=== PATIENT | male | born 1930 | race Asian ===

== ENCOUNTER 2017-07-01 06:51 | Inpatient (IN) | payer OTHER, MEDICAID ==
[~2017-07-01] VITALS: Ht 165.1 cm; Wt 55.1 kg
[2017-07-01 06:52] VITALS: BP 98/50
[2017-07-01] MEDS ORDERED: LEVOTHYROXINE75 MCG ORAL (07:04)
[2017-07-01] MEDS ORDERED: ALFUZOSIN HCL10 MG PO (07:04)
[2017-07-01] MEDS ORDERED: BENZONATATE100 MG ORAL (07:04)
[2017-07-01 07:06] LABS: HEMATOCRIT 25.7 % (42.0-52.0); HEMOGLOBIN 8.2 G/DL (14.2-18.0); MEAN CORPUSCULAR VOLUME 91 FL (80-99); PLATELET COUNT 384 K/UL (150-450); RED BLOOD COUNT 2.81 M/UL (4.70-6.10); RED CELL DISTRIBUTION WIDTH 11.9 % (11.6-14.8); WHITE BLOOD COUNT 8.3 K/UL (4.8-10.8)
--- NOTE | 2017-07-01 07:09 | Emergency Room Report ---
History of Present Illness General Chief Complaint: Dyspnea/Respdistress Source: Family Member Present Illness HPI Patient presents from home with complaints of shortness of breath Patient's son provides most of the history reports the patient has been coughing with sputum production appears to be weak symptoms ongoing for the past several days he also reports the patient had recent hospitalization at [facility] Denies any vomiting or diarrhea Patient appears extremely weak is not able to provide full sentences he repeated that his mouth was dry History of present illness remains significantly limited Allergies: Coded Allergies: No Known Allergies (Unverified , 07/01/17) Patient History Limited by: medical condition Past Medical History: see triage record Pertinent Family History: none Reviewed Nursing Documentation: PMH: Agreed, PSxH: Agreed Nursing Documentation-PMH Past Medical History: No History, Except For Review of Systems All Other Systems: limited - Other than the ones mentioned in the history of present illness all others are reviewed however they do stay limited due to the patient's mental status Physical Exam Vital Signs Date Time Temp Pulse Resp B/P (MAP) Pulse Ox O2 Delivery O2 Flow Rate FiO2 07/01/17 06:42 97.0 83 36 98/50 97 Nasal Cannula 3.0 Sp02 EP Interpretation: reviewed, normal General Appearance: cachetic Head: normocephalic, atraumatic Eyes: bilateral eye PERRL, bilateral eye EOMI ENT: dry mucus membranes Neck: full range of motion, supple Respiratory: no respiratory distress, no retraction, crackles - Both lower lobes Cardiovascular #1: no edema, irregularly irregular Gastrointestinal: non tender, soft Musculoskeletal: other - Patient does not follow all commands appears extremely weak, there is no obvious focal deficit Neurologic: responsive Skin: other - Poor skin turgor Lymphatic: no adenopathy Medical Decision Making Diagnostic Impression: Primary Impression: Dyspnea Additional Impressions: Anemia MDS (myelodysplastic syndrome) Interstitial lung disease Hypoxia ER Course Patient is a fairly complex patient with multiple differential to consideration including but not limited to cardiac cardiopulmonary and vascular emergencies Patient's blood work reveals anemia X-ray reveals what appears to be likely interstitial disease there are increased markings right upper lobe Dr. Vick was able to review imaging from recent hospitalization which does show some similar findings Patient received IV fluids blood pressure has significantly improved at this time requires further inpatient care Please note that the initial EKG had read atrial fibrillation, there appears to be premature atrial contraction and visible P waves, therefore this is likely abberancy Labs Test 07/01/17 06:50 07/01/17 07:23 White Blood Count 8.3 K/UL (4.8-10.8) Red Blood Count 2.81 M/UL (4.70-6.10) Hemoglobin 8.2 G/DL (14.2-18.0) Hematocrit 25.7 % (42.0-52.0) Mean Corpuscular Volume 91 FL (80-99) Mean Corpuscular Hemoglobin 29.0 PG (27.0-31.0) Mean Corpuscular Hemoglobin Concent 31.8 G/DL (32.0-36.0) Red Cell Distribution Width 11.9 % (11.6-14.8) Platelet Count 384 K/UL (150-450) Mean Platelet Volume 5.1 FL (6.5-10.1) Neutrophils (%) (Auto) % (45.0-75.0) Lymphocytes (%) (Auto) % (20.0-45.0) Monocytes (%) (Auto) % (1.0-10.0) Eosinophils (%) (Auto) % (0.0-3.0) Basophils (%) (Auto) % (0.0-2.0) Differential Total Cells Counted 100 Neutrophils % (Manual) 85 % (45-75) Lymphocytes % (Manual) 7 % (20-45) Monocytes % (Manual) 8 % (1-10) Eosinophils % (Manual) 0 % (0-3) Basophils % (Manual) 0 % (0-2) Band Neutrophils 0 % (0-8) Platelet Estimate Adequate Platelet Morphology Normal Hypochromasia 1+ Prothrombin Time 12.1 SEC (9.30-11.50) Prothromb Time International Ratio 1.2 (0.9-1.1) Activated Partial Thromboplast Time 28 SEC (23-33) Sodium Level 132 MMOL/L (136-145) Potassium Level 3.1 MMOL/L (3.5-5.1) Chloride Level 93 MMOL/L (98-107) Carbon Dioxide Level 33 MMOL/L (21-32) Anion Gap 6 mmol/L (5-15) Blood Urea Nitrogen 9 mg/dL (7-18) Creatinine 0.8 MG/DL (0.55-1.30) Estimat Glomerular Filtration Rate mL/min (>60) Glucose Level 100 MG/DL (74-106) Lactic Acid Level 1.60 mmol/L (0.66-2.22) Calcium Level 8.4 MG/DL (8.5-10.1) Total Bilirubin 0.4 MG/DL (0.2-1.0) Aspartate Amino Transf (AST/SGOT) 55 U/L (15-37) Alanine Aminotransferase (ALT/SGPT) 84 U/L (12-78) Alkaline Phosphatase 94 U/L (46-116) Total Creatine Kinase 63 U/L (26-308) Creatine Kinase MB 0.7 NG/ML (0.0-3.6) Creatine Kinase MB Relative Index 1.1 Troponin I 0.005 ng/mL (0.000-0.056) Pro-B-Type Natriuretic Peptide 769 pg/mL (0-125) Total Protein 6.5 G/DL (6.4-8.2) Albumin 1.9 G/DL (3.4-5.0) Globulin 4.6 g/dL Albumin/Globulin Ratio 0.4 (1.0-2.7) Lipase 78 U/L (73-393) Urine Color Pale yellow Urine Appearance Clear Urine pH 7 (4.5-8.0) Urine Specific [place] 1.010 (1.005-1.035) Urine Protein Negative (NEGATIVE) Urine Glucose (UA) Negative (NEGATIVE) Urine Ketones Negative (NEGATIVE) Urine Occult Blood 5+ (NEGATIVE) Urine Nitrite Negative (NEGATIVE) Urine Bilirubin Negative (NEGATIVE) Urine Urobilinogen 1 MG/DL (0.0-1.0) Urine Leukocyte Esterase Negative (NEGATIVE) Urine RBC 40-60 /HPF (0 - 0) Urine WBC 0-2 /HPF (0 - 0) Urine Squamous Epithelial Cells Occasional /LPF Urine Bacteria Occasional /HPF (NONE) Rhythm Strip Diag. Results EP Interpretation: yes Rate: 77 Rhythm: NSR, no PVC's, no ectopy Chest X-Ray Diagnostic Results Chest X-Ray Diagnostic Results : Chest X-Ray Ordered: Yes # of Views/Limited/Complete: 1 View Indication: Shortness of Breath EP Interpretation: Yes Interpretation: no pneumothorax, other - Interstitial disease appearance, increase right upper lung markings, bilateral effusions Impression: Other - Interstitial disease significant with bilateral effusions Electronically Signed by: Lora Montero DO Last Vital Signs Date Time Temp Pulse Resp B/P (MAP) Pulse Ox O2 Delivery O2 Flow Rate FiO2 07/01/17 06:52 77 26 Nasal Cannula 3.0 07/01/17 06:52 97.0 98/50 100 Status: improved Disposition: ADMITTED INPATIENT Condition: Serious LORA MONTERO D.O. Jul 01, 2017 07:09
[2017-07-01 07:16] LABS: INR 1.2 (0.9-1.1)
[2017-07-01 07:21] LABS: ALANINE AMINOTRANSFERASE 84 U/L (12-78); ALBUMIN 1.9 G/DL (3.4-5.0); ALBUMIN/GLOBULIN RATIO 0.4 (1.0-2.7); ALKALINE PHOSPHATASE 94 U/L (46-116); ANION GAP 6 mmol/L (5-15); ASPARTATE AMINO TRANSFERASE 55 U/L (15-37); BILIRUBIN,TOTAL 0.4 MG/DL (0.2-1.0); BLOOD UREA NITROGEN 9 mg/dL (7-18); CALCIUM 8.4 MG/DL (8.5-10.1); CARBON DIOXIDE 33 MMOL/L (21-32); CHLORIDE 93 MMOL/L (98-107); CREATININE 0.8 MG/DL (0.55-1.30); POTASSIUM 3.1 MMOL/L (3.5-5.1); SODIUM 132 MMOL/L (136-145)
[2017-07-01 07:31] LABS: CKMB 0.7 NG/ML (0.0-3.6); CREATINE KINASE 63 U/L (26-308)
[2017-07-01 07:59] LABS: APPEARANCE,URINE CLEAR; BILIRUBIN, URINE NEGATIVE (NEGATIVE); COLOR,URINE PALE YELLOW; GLUCOSE, URINE (UA) NEGATIVE (NEGATIVE); KETONES,URINE NEGATIVE (NEGATIVE); LEUKOCYTE ESTERASE ,URINE NEGATIVE (NEGATIVE); NITRITE,URINE NEGATIVE (NEGATIVE); PH,URINE 7 (4.5-8.0); PROTEIN,URINE NEGATIVE (NEGATIVE); UROBILINOGEN,URINE 1 MG/DL (0.0-1.0)
[2017-07-01 09:09] VITALS: BP 99/59
[2017-07-01] MEDS ORDERED: Albuterol ud Inhalation HHN ONE (09:15)
[2017-07-01 10:33] VITALS: BP 113/73
--- NOTE | 2017-07-01 11:16 | Diagnostic Imaging Report ---
Indication: Dyspnea Comparison: 03/25/2006 A single view chest radiograph was obtained. Findings: Extensive scarring in the upper lobes demonstrated with pleural thickening and suggestion of honeycombing. Abnormal interstitial opacities likely fibrosis demonstrated bilaterally. Superimposed interstitial edema is certainly possible. Please correlate clinically. Heart appears prominent size. Aorta is moderately calcified. Bones are osteopenic. Impression: Chronic lung disease as described above. Superimpose interstitial edema or pneumonitis may be present. Please correlate clinically. Followup recommended.
[2017-07-01] MEDS: Albuterol/Ipratropium 3ml neb HHN SCH ×4 (11:30→23:00)
--- NOTE | 2017-07-01 13:02 | History & Physical ---
History and Physical History & Physicial dict bronchiectasis w MAC pneumonia severe protein madisyn malnutrition anemia hypotension due to dehydration, resolved ID consult [facility] SHEANILSA Jul 01, 2017 13:02
--- NOTE | 2017-07-01 13:02 | History & Physical ---
History and Physical History & Physicial dict bronchiectasis w MAC pneumonia severe protein madisyn malnutrition anemia hypotension due to dehydration, resolved ID consult [facility] SHEANILSA Jul 01, 2017 13:02
--- NOTE | 2017-07-01 13:02 | History & Physical ---
History and Physical History & Physicial dict bronchiectasis w MAC pneumonia severe protein madisyn malnutrition anemia hypotension due to dehydration, resolved ID consult [facility] SHEANILSA Jul 01, 2017 13:02
[2017-07-01] MEDS: Benzonatate 100mg Perles ORAL SCH ×2 (13:37→17:51)
[2017-07-01] MEDS ORDERED: KCl 10% 40mEq/30ml liquid ORAL ONE (14:00)
--- NOTE | 2017-07-01 15:05 | Infectious Diseases Prog Note ---
Assessment/Plan Assessment/Plan Full consult dictated: A) 1) possible mac pna, less likely invasive aspergillus based on CT 2) no obvious focal consolidation to suggest cap 3) pmh noted 4) patient refused bronchoscopy P 1) azithromycin, rifampin, ethambutol 2) baseline ekg, auditory and visual acuity evaluation (ophthalmology and ENT evaluation) 3) will need at least one year treatment with f/u negative sputum culture 4) d/w Dr. Vick 5) thank you Subjective Allergies: Coded Allergies: No Known Allergies (Unverified , 07/01/17) Objective Vital Signs Last 24 Hour Vital Signs Date Time Temp Pulse Resp B/P (MAP) Pulse Ox O2 Delivery O2 Flow Rate FiO2 07/01/17 12:00 89 07/01/17 10:54 86 07/01/17 10:35 78 20 100 Nasal Cannula 2.0 28 07/01/17 10:33 96.4 73 20 113/73 90 Room Air 07/01/17 10:30 81 18 91 Nasal Cannula 2.0 91 07/01/17 10:27 80 18 Nasal Cannula 2.0 28 07/01/17 09:45 97.0 78 22 99/59 100 Nasal Cannula 3.0 07/01/17 09:09 97.0 78 22 99/59 100 Nasal Cannula 3.0 07/01/17 06:52 77 26 Nasal Cannula 3.0 07/01/17 06:52 97.0 76 30 98/50 100 Nasal Cannula 3.0 07/01/17 06:42 97.0 83 36 98/50 97 Nasal Cannula 3.0 Height (Feet): 5 Height (Inches): 5.00 Weight (Pounds): 95 Laboratory Tests Test 07/01/17 06:50 07/01/17 07:23 White Blood Count 8.3 K/UL (4.8-10.8) Red Blood Count 2.81 M/UL (4.70-6.10) L Hemoglobin 8.2 G/DL (14.2-18.0) L Hematocrit 25.7 % (42.0-52.0) L Mean Corpuscular Volume 91 FL (80-99) Mean Corpuscular Hemoglobin 29.0 PG (27.0-31.0) Mean Corpuscular Hemoglobin Concent 31.8 G/DL (32.0-36.0) L Red Cell Distribution Width 11.9 % (11.6-14.8) Platelet Count 384 K/UL (150-450) Mean Platelet Volume 5.1 FL (6.5-10.1) L Neutrophils (%) (Auto) % (45.0-75.0) Lymphocytes (%) (Auto) % (20.0-45.0) Monocytes (%) (Auto) % (1.0-10.0) Eosinophils (%) (Auto) % (0.0-3.0) Basophils (%) (Auto) % (0.0-2.0) Differential Total Cells Counted 100 Neutrophils % (Manual) 85 % (45-75) H Lymphocytes % (Manual) 7 % (20-45) L Monocytes % (Manual) 8 % (1-10) Eosinophils % (Manual) 0 % (0-3) Basophils % (Manual) 0 % (0-2) Band Neutrophils 0 % (0-8) Platelet Estimate Adequate Platelet Morphology Normal Hypochromasia 1+ Prothrombin Time 12.1 SEC (9.30-11.50) H Prothromb Time International Ratio 1.2 (0.9-1.1) H Activated Partial Thromboplast Time 28 SEC (23-33) Sodium Level 132 MMOL/L (136-145) L Potassium Level 3.1 MMOL/L (3.5-5.1) L Chloride Level 93 MMOL/L (98-107) L Carbon Dioxide Level 33 MMOL/L (21-32) H Anion Gap 6 mmol/L (5-15) Blood Urea Nitrogen 9 mg/dL (7-18) Creatinine 0.8 MG/DL (0.55-1.30) Estimat Glomerular Filtration Rate mL/min (>60) Glucose Level 100 MG/DL (74-106) Lactic Acid Level 1.60 mmol/L (0.66-2.22) Calcium Level 8.4 MG/DL (8.5-10.1) L Total Bilirubin 0.4 MG/DL (0.2-1.0) Aspartate Amino Transf (AST/SGOT) 55 U/L (15-37) H Alanine Aminotransferase (ALT/SGPT) 84 U/L (12-78) H Alkaline Phosphatase 94 U/L (46-116) Total Creatine Kinase 63 U/L (26-308) Creatine Kinase MB 0.7 NG/ML (0.0-3.6) Creatine Kinase MB Relative Index 1.1 Troponin I 0.005 ng/mL (0.000-0.056) Pro-B-Type Natriuretic Peptide 769 pg/mL (0-125) H Total Protein 6.5 G/DL (6.4-8.2) Albumin 1.9 G/DL (3.4-5.0) L Globulin 4.6 g/dL Albumin/Globulin Ratio 0.4 (1.0-2.7) L Lipase 78 U/L (73-393) Urine Color Pale yellow Urine Appearance Clear Urine pH 7 (4.5-8.0) Urine Specific [place] 1.010 (1.005-1.035) Urine Protein Negative (NEGATIVE) Urine Glucose (UA) Negative (NEGATIVE) Urine Ketones Negative (NEGATIVE) Urine Occult Blood 5+ (NEGATIVE) H Urine Nitrite Negative (NEGATIVE) Urine Bilirubin Negative (NEGATIVE) Urine Urobilinogen 1 MG/DL (0.0-1.0) H Urine Leukocyte Esterase Negative (NEGATIVE) Urine RBC 40-60 /HPF (0 - 0) H Urine WBC 0-2 /HPF (0 - 0) Urine Squamous Epithelial Cells Occasional /LPF Urine Bacteria Occasional /HPF (NONE) Current Medications Medications (Trade) Dose Ordered Sig/Tanya Route PRN Reason Start Time Stop Time Status Last Admin Dose Admin Albuterol/ Ipratropium (Albuterol/ Ipratropium) 3 ml Q4HRT HHN 07/01/17 11:30 07/06/17 11:29 Alfuzosin HCl (Uroxatrol) 10 mg DAILY ORAL 07/02/17 09:00 08/01/17 08:59 Benzonatate (Tessalon Perles) 100 mg THREE TIMES A DAY ORAL 07/01/17 13:00 07/31/17 12:59 07/01/17 13:37 Cetylpyridinium Chloride (Cepacol) 1 lozenge Q2H PRN CHI throat pain 07/01/17 12:00 07/31/17 11:59 07/01/17 12:38 Levothyroxine Sodium (Synthroid) 75 mcg DAILY@0630 ORAL 07/02/17 06:30 08/01/17 06:29 Sodium Chloride 1,000 ml @ 100 mls/hr Q10H IV 07/01/17 10:00 07/31/17 09:59 07/01/17 12:38 BRITTANI LAWRENCE Jul 01, 2017 15:05
[2017-07-01] MEDS ORDERED: Azithromycin 250mg tab ORAL ONE (15:15)
[2017-07-01 15:57] VITALS: BP 86/49
[2017-07-01 20:00] VITALS: BP 97/50
[2017-07-01] MEDS ORDERED: Zolpidem 5mg tab ORAL PRN (20:15)
--- NOTE | 2017-07-01 20:16 | Cardiology Report ---
APPROVED REPORT EKG Measurement Heart [id number] Sinus rhythm aith APCs. Left posterior fascicular block Cannot rule out Anterior infarct, age undetermined Abnormal ECG
--- NOTE | 2017-07-01 20:16 | Cardiology Report ---
APPROVED REPORT EKG Measurement Heart [id number] Sinus rhythm aith APCs. Left posterior fascicular block Cannot rule out Anterior infarct, age undetermined Abnormal ECG
--- NOTE | 2017-07-01 20:16 | Cardiology Report ---
APPROVED REPORT EKG Measurement Heart [id number] Sinus rhythm aith APCs. Left posterior fascicular block Cannot rule out Anterior infarct, age undetermined Abnormal ECG
--- NOTE | 2017-07-01 21:00 | History and Physical Report ---
DATE OF ADMISSION: 07/01/2017 IDENTIFICATION DATA AND CHIEF COMPLAINT: An 86-year-old male admitted through the emergency department from home because of shortness of breath and weakness. HISTORY OF PRESENT ILLNESS: The patient is living at home. He was recently discharged from [facility] after treatment for respiratory difficulties with pulmonary infiltrates. Sputum for acid-fast grew mycobacterium. He remains very weak and is coughing up mucopurulent sputum. He has no high fevers. He has mild shortness of breath. He became more weak and came to the emergency department here. PAST MEDICAL HISTORY: The patient has extensive bronchiectasis, severe protein-calorie malnutrition with cachexia, chronic anemia, hypothyroidism, major depression, and weight loss. He had hemoptysis recently, but bronchoscopy was declined by the family. There is a history of BPH, constipation, hypovitaminosis D, overactive bladder, and osteoarthritis of the hips. ALLERGIES: None. MEDICATIONS: Tessalon, prednisone, Uroxatral, and Synthroid. I do not believe that he is taking the prednisone, although it was prescribed. SOCIAL HISTORY: He lives at home with . He has never smoked and does not use alcohol. REVIEW OF SYSTEMS: He has a significant weight loss. He is weak and unable to care for himself. 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 Otherwise unremarkable. PHYSICAL EXAMINATION: GENERAL: The patient is an elderly man who appears to be of stated age. He is alert and responsive. He was hypotensive when he presented to the emergency department, but this improved with fluids. There is no fever. He appears to be cachectic. HEENT: The head is normocephalic with temporal muscle wasting. NECK: No jugular venous distention. No lymphadenopathy. CHEST: Decreased breath sounds. There is no wheezing. CARDIAC: Rhythm is regular. ABDOMEN: Soft and nontender. Liver and spleen are not enlarged. EXTREMITIES: No clubbing, cyanosis, or edema. NEUROLOGIC: Appears to be grossly intact. LABORATORY STUDIES: Show hemoglobin is low at 8.2. White count is normal. Platelets are normal. Sodium 132 and potassium 3.1. Liver enzymes are slightly elevated. BNP 769. Troponin is negative. Albumin 1.9. Urinalysis shows some red cells. Coagulation is normal. Chest x-ray shows extensive bronchiectasis and fibrotic infiltrates. IMPRESSION: 1. Progressive Mycobacterium avium complex pneumonia. 2. Bronchiectasis. 3. Cachexia, in remission. 4. Anemia of chronic disease. 5. Severe protein-calorie malnutrition. 6. Hypokalemia. 7. Hypotension, resolved with fluids and dehydration. PLAN: The patient will be given appropriate antibiotics recommended by Infectious Disease specialist whom I have called this morning. Potassium will be supplemented. He will likely require placement in a rehabilitation facility. Delvis Vick M.D. DR: VAUGHN JOB#: [id number] CC: Prasanna Melton M.D.; Fax#: [phone]
--- NOTE | 2017-07-01 22:30 | Consultation ---
DATE OF CONSULTATION: 07/01/2017 INFECTIOUS DISEASE CONSULTATION CONSULTING PHYSICIAN: Prasanna Melton M.D. ATTENDING PHYSICIAN: Delvis Vick M.D. REASON FOR CONSULTATION: Possible Mycobacterium intracellulare AVM or MAC pneumonia versus some other pneumonia versus other pneumonia. CHIEF COMPLAINT COMING TO THE HOSPITAL: Atrial fibrillation, dyspnea. HISTORY OF PRESENT ILLNESS: This is a very pleasant 86-year-old male who comes into [facility] with dyspnea. The patient was evaluated at [facility] where I looked at his cultures and CAT scan. Cultures from induced sputum cultured grew out NICOLE or Mycobacterium avium-intracellulare. The patient also had Aspergillus niger and fumigatus cultured out. TB Gold was indeterminate. The patient's cryptococcus, TB PCR complex, PCP were negative. Infectious disease consult was requested for the possibility of treating for MAC pneumonia. In discussion with Dr. Delvis Vick, it was felt that this baseline CAT scan and current presentation, this to less likely be invasive Aspergillus infection. The patient has refused bronchoscopy for more definitive diagnoses. MAR was noted. Orders were noted. The patient presented to [facility] with dyspnea and atrial fibrillation. REVIEW OF SYSTEMS: CONSTITUTIONAL: The patient denies generalized weakness or fatigue. He has chronic dyspnea. He denies any fever or chills. He has had weight loss. HEAD AND NECK: No thrush or dysphagia. CARDIAC: No chest pain. GASTROINTESTINAL: No nausea, vomiting, or diarrhea. GENITOURINARY: No dysuria or frequency. PULMONARY: As discussed. He has dyspnea, also he states sputum production that is yellow-brown. NEUROLOGIC: No seizures. SKIN: No rash. CARDIAC: No chest pain. He did come in with atrial fibrillation and palpitations. PAST MEDICAL HISTORY: The patient's past medical history includes history of the following. The patient has past medical history of dyspnea as discussed. He has at this time anemia. He has atrial fibrillation. He has malnutrition. He has weight loss. He has dehydration. He has hypertension. He has history of hypothyroidism. No history of diabetes or htn mentioned. ALLERGIES: No known drug allergies. FAMILY HISTORY: Noncontributory. SOCIAL HISTORY: Negative for smoking, alcohol, drug abuse. MEDICATIONS: Upon reviewing the MAR, he is on the following medications. He is on Uroxatral, azithromycin, ethambutol, and rifampin. He is on levothyroxine or Synthroid. He is on Cepacol. He is on albuterol treatments. He was given Levaquin also. PHYSICAL EXAMINATION: VITAL SIGNS: Blood pressure is 113/73, pulse rate 82, respiratory rate 16, saturation 98%, and temperature is 96.4. GENERAL: Alert, responsive, in no acute distress, mild dyspnea noted. HEAD AND NECK: Oral exam, no thrush. Eye exam, no icterus. Normocephalic. No facial droop. No neck stiffness. Neck is supple. HEART: Regular. No gallop or murmur. ABDOMEN: Soft. Positive bowel sounds. Nontender. LUNGS: Few bilateral rhonchi, rales, crackles. SKIN: No rashes. MUSCULOSKELETAL: No effusion. EXTREMITIES: Legs are without cellulitis. PERIPHERAL VASCULAR: No cyanosis or gangrene. RECTAL: Deferred. GENITOURINARY: No Rooney. LINES: Line sites without phlebitis. NEUROLOGIC: generalized weakness, responsive, seems to be somewhat oriented. LABORATORY DATA: Outside CAT scan showed the following. 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 Also he had left hilar lymph nodes and possible granulomatous disease. Small pneumothorax was reported. Output sputum induced showed it was positive for Aspergillus niger and fumigatus. It also was positive for NICOLE or Mycobacterium avium-intracellulare. The sensitivities are pending. Also PCP was negative. TB PCR complex was negative and cryptococcus was negative. I believe TB Gold blood test was indeterminate. Laboratories here showed white count is 8.3, hemoglobin 8.2; neutrophils 85%. Creatinine is normal at 0.8. UA was leukocyte esterase negative. Chest x-ray showed chronic lung disease, superimposed interstitial edema, pneumonitis may be present. ASSESSMENT AND PLAN: 1. The patient has possible pneumonia which includes Mycobacterium avium-intracellulare/Mycobacterium avium complex pneumonia. The subacute presentation and CT scan findings are certainly consistent with this type of pneumonia. He also had Aspergillus grow out, but this is more likely colonizer based on CT scans did not mention any halo findings that will be consistent with invasive aspergillosis and the patient will more likely be more toxic or sick-looking than he is now. The patient has refused bronchoscopy, it will give more definitive diagnosis of the lung process. I discussed with Dr. Vick. At this time, we will treat for Mycobacterium avium-intracellulare/Mycobacterium avium complex pneumonia with azithromycin, rifampin, and ethambutol. Azithromycin will be 250 a day, rifampin 600 a day, and ethambutol around 800 mg a day based on his weight. The patient will need baseline electrocardiogram, auditory and visual acuity evaluations including ophthalmology and ENT evaluations. The patient will need at least 1 year treatment with followup, negative sputum cultures for acid-fast bacillus and culture. Again I discussed with Dr. Vick about treatment plan and this patient. Because the patient is refusing bronchoscopy and because his condition is tenuous, we will proceed with treatment for Mycobacterium avium-intracellulare/Mycobacterium avium complex for now. 2. We will get sputum culture here to make sure there is no other pneumonia or pertinent pneumonic process such as community-acquired pneumonia and we will check Legionella and Mycoplasma also. The above because of azithromycin. 3. The patient has hypothyroidism. 4. Atrial fibrillation. 5. Anemia. 6. Malnutrition. 7. Weight loss. 8. Dehydration. 9. Pulmonary treatment. 10. Past medical history noted. 11. No known allergies. 12. Social history negative. 13. Family history noncontributory. 14. MAR was noted. 15. Case discussed with RN. 16. Case discussed with Dr. Vick. 17. Continue treatment per Dr. Vick and other consultants. Prasanna Melton M.D. DR: Renee JOB#: [id number] CC: HENRY
[2017-07-01] MEDS ORDERED: Zolpidem 5mg tab ORAL ONE (23:00)
[2017-07-02] VITALS (8 sets, daily range): BP systolic 110–144; BP diastolic 55–80
[2017-07-02] MEDS: Albuterol/Ipratropium 3ml neb HHN SCH ×6 (03:00→23:03)
[2017-07-02 08:10] LABS: HEMATOCRIT 26.2 % (42.0-52.0); HEMOGLOBIN 8.4 G/DL (14.2-18.0); MEAN CORPUSCULAR VOLUME 92 FL (80-99); PLATELET COUNT 391 K/UL (150-450); RED BLOOD COUNT 2.85 M/UL (4.70-6.10); RED CELL DISTRIBUTION WIDTH 12.4 % (11.6-14.8); WHITE BLOOD COUNT 7.2 K/UL (4.8-10.8)
[2017-07-02 08:25] LABS: ALANINE AMINOTRANSFERASE 81 U/L (12-78); ALBUMIN 1.9 G/DL (3.4-5.0); ALBUMIN/GLOBULIN RATIO 0.4 (1.0-2.7); ALKALINE PHOSPHATASE 93 U/L (46-116); ANION GAP 6 mmol/L (5-15); ASPARTATE AMINO TRANSFERASE 64 U/L (15-37); BILIRUBIN,TOTAL 0.4 MG/DL (0.2-1.0); BLOOD UREA NITROGEN 8 mg/dL (7-18); CALCIUM 8.2 MG/DL (8.5-10.1); CARBON DIOXIDE 30 MMOL/L (21-32); CHLORIDE 95 MMOL/L (98-107); CREATININE 0.7 MG/DL (0.55-1.30); POTASSIUM 3.5 MMOL/L (3.5-5.1); SODIUM 131 MMOL/L (136-145)
[2017-07-02] MEDS ORDERED: Azithromycin 250mg tab ORAL SCH (09:00)
[2017-07-02] MEDS: Benzonatate 100mg Perles ORAL SCH ×3 (09:23→18:00)
[2017-07-02] MEDS ORDERED: dilTIAZem HCl 30mg tab ORAL SCH ×2 (14:00→22:00)
--- NOTE | 2017-07-02 14:01 | Pulmonology Progress Note ---
Assessment/Plan Assessment/Plan 1. Progressive Mycobacterium avium complex pneumonia. 2. Bronchiectasis. 3. Cachexia, in remission. 4. Anemia of chronic disease. 5. Severe protein-calorie malnutrition. 6. Hypokalemia. 7. Hypotension, resolved with fluids and dehydration. started abx per ID weak; PT/OT ordered will need snf Subjective Constitutional: Denies: fever Respiratory: Reports: productive cough Allergies: Coded Allergies: No Known Allergies (Unverified , 07/01/17) Subjective poor sleep Objective Last 24 Hour Vital Signs Date Time Temp Pulse Resp B/P (MAP) Pulse Ox O2 Delivery O2 Flow Rate FiO2 07/02/17 12:04 97.7 106 20 110/61 92 Nasal Cannula 3.0 07/02/17 11:49 88 20 Nasal Cannula 2.0 28 07/02/17 11:35 86 18 91 Nasal Cannula 2.0 28 07/02/17 08:00 96.9 95 22 118/59 92 Nasal Cannula 3.0 07/02/17 07:03 90 20 Nasal Cannula 2.0 28 07/02/17 06:57 Nasal Cannula 2.0 28 07/02/17 06:52 88 18 91 Nasal Cannula 2.0 28 07/02/17 06:50 91 Nasal Cannula 2.0 28 07/02/17 03:53 76 07/02/17 03:18 Nasal Cannula 2.0 28 07/02/17 03:17 Nasal Cannula 2.0 28 07/02/17 00:00 Nasal Cannula 2.0 28 07/02/17 00:00 Nasal Cannula 2.0 28 07/02/17 00:00 96.8 101 22 144/80 90 Nasal Cannula 2.0 07/01/17 23:58 96 07/01/17 20:00 97.1 89 20 97/50 96 Nasal Cannula 2.0 07/01/17 19:43 92 07/01/17 19:32 97 Nasal Cannula 2.0 28 07/01/17 19:31 90 16 Nasal Cannula 2.0 28 07/01/17 19:29 16 97 Nasal Cannula 2.0 28 07/01/17 19:27 90 16 97 Nasal Cannula 2.0 28 07/01/17 19:27 Nasal Cannula 2.0 28 07/01/17 16:00 92 07/01/17 15:57 96.1 93 20 86/49 96 Nasal Cannula 2.0 07/01/17 15:07 82 16 98 Nasal Cannula 2.0 28 07/01/17 14:38 80 18 94 Nasal Cannula 2.0 28 General Appearance: no acute distress, cachetic HEENT: atraumatic Respiratory/Chest: rhonchi Cardiovascular: normal rate Abdomen: soft, non tender Microbiology Date/Time Source Procedure Growth Status 07/01/17 20:30 Sputum Induced Gram Stain - Final Resulted 07/01/17 20:30 Sputum Induced Sputum Culture Pending Resulted Laboratory Tests 07/01/17 16:35: Coccidioides Antibody (Comp Fix) [Pending], Mycoplasma pneumoniae IgG Antibody [ Pending], Mycoplasma pneumoniae IgM Ab Titer [Pending] 07/01/17 18:00: Urine Legionella Antigen [Pending] 07/02/17 06:50: White Blood Count 7.2, Red Blood Count 2.85L, Hemoglobin 8.4L, Hematocrit 26.2L , Mean Corpuscular Volume 92, Mean Corpuscular Hemoglobin 29.4, Mean Corpuscular Hemoglobin Concent 32.0, Red Cell Distribution Width 12.4, Platelet Count 391, Mean Platelet Volume 4.9L, Neutrophils (%) (Auto) , Lymphocytes (%) ( Auto) , Monocytes (%) (Auto) , Eosinophils (%) (Auto) , Basophils (%) (Auto) , Differential Total Cells Counted 100, Neutrophils % (Manual) 86H, Lymphocytes % (Manual) 10L, Monocytes % (Manual) 3, Eosinophils % (Manual) 0, Basophils % ( Manual) 1, Band Neutrophils 0, Platelet Estimate Adequate, Platelet Morphology Normal, Hypochromasia 1+, Sodium Level 131L, Potassium Level 3.5, Chloride Level 95L, Carbon Dioxide Level 30, Anion Gap 6, Blood Urea Nitrogen 8, Creatinine 0.7, Estimat Glomerular Filtration Rate , Glucose Level 98, Calcium Level 8.2L, Total Bilirubin 0.4, Aspartate Amino Transf (AST/SGOT) 64H, Alanine Aminotransferase (ALT/SGPT) 81H, Alkaline Phosphatase 93, Total Protein 6.5, Albumin 1.9L, Globulin 4.6, Albumin/Globulin Ratio 0.4L, Thyroid Stimulating Hormone (TSH) 7.333H Current Medications Medications (Trade) Dose Ordered Sig/Tanya Route PRN Reason Start Time Stop Time Status Last Admin Dose Admin Albuterol/ Ipratropium (Albuterol/ Ipratropium) 3 ml Q4HRT HHN 07/01/17 11:30 07/06/17 11:29 07/02/17 11:48 Alfuzosin HCl (Uroxatrol) 10 mg DAILY ORAL 07/02/17 09:00 08/01/17 08:59 07/02/17 09:25 Azithromycin (Zithromax) 250 mg DAILY ORAL 07/02/17 09:00 07/09/17 08:59 07/02/17 09:25 Benzonatate (Tessalon Perles) 100 mg THREE TIMES A DAY ORAL 07/01/17 13:00 07/31/17 12:59 07/02/17 09:23 Cetylpyridinium Chloride (Cepacol) 1 lozenge Q2H PRN CHI throat pain 07/01/17 12:00 07/31/17 11:59 07/02/17 09:26 Diltiazem HCl (Cardizem) 30 mg EVERY 8 HOURS ORAL 07/02/17 14:00 08/01/17 13:59 Ethambutol HCl (Myambutol) 800 mg DAILY ORAL 07/02/17 09:00 08/01/17 08:59 07/02/17 09:20 Levothyroxine Sodium (Synthroid) 75 mcg DAILY@0630 ORAL 07/02/17 06:30 08/01/17 06:29 07/02/17 05:54 Rifampin (Rifadin) 600 mg DAILY ORAL 07/02/17 09:00 08/01/17 08:59 07/02/17 09:21 Sodium Chloride 1,000 ml @ 75 mls/hr [id number] IV 07/02/17 13:30 08/01/17 13:29 Trazodone HCl (Desyrel) 100 mg BEDTIME ORAL 07/02/17 21:00 08/01/17 20:59 Zolpidem Tartrate (Ambien) 10 mg HSPRN PRN ORAL Insomnia 07/02/17 21:00 07/09/17 20:59 NILSA VALDIVIA Jul 02, 2017 14:01
[2017-07-02] MEDS ORDERED: Zolpidem 5mg tab ORAL PRN ×2 (21:00)
[2017-07-02] MEDS ORDERED: TraZODone 100mg tab ORAL SCH (21:00)
[2017-07-02] MEDS: TraZODone 100mg tab ORAL SCH (22:18)
[2017-07-02] MEDS ORDERED: dilTIAZem HCl 25mg/5ml Inj IVP ONE ×2 (22:30→23:15)
[2017-07-02] MEDS ORDERED: Norco 5mg/325mg tab ORAL PRN (23:45)
[2017-07-03] VITALS (45 sets, daily range): BP systolic 92–146; BP diastolic 45–104
[2017-07-03] MEDS ORDERED: Amiodarone 900 MG in D5W 500ml 482 ML IV SCH (02:15)
[2017-07-03] MEDS ORDERED: AMIODARONE IV SCH ×2 (03:00→03:30)
[2017-07-03] MEDS ORDERED: D5W IV SCH ×2 (03:00→03:30)
[2017-07-03] MEDS: Albuterol/Ipratropium 3ml neb HHN SCH ×6 (04:05→22:42)
[2017-07-03 05:30] LABS: HEMATOCRIT 24.4 % (42.0-52.0); HEMOGLOBIN 7.9 G/DL (14.2-18.0); MEAN CORPUSCULAR VOLUME 94 FL (80-99); PLATELET COUNT 302 K/UL (150-450); RED BLOOD COUNT 2.59 M/UL (4.70-6.10); RED CELL DISTRIBUTION WIDTH 13.4 % (11.6-14.8); WHITE BLOOD COUNT 13.9 K/UL (4.8-10.8)
[2017-07-03 05:50] LABS: ANION GAP 7 mmol/L (5-15); BLOOD UREA NITROGEN 9 mg/dL (7-18); CALCIUM 8.3 MG/DL (8.5-10.1); CARBON DIOXIDE 29 MMOL/L (21-32); CHLORIDE 95 MMOL/L (98-107); CREATININE 0.6 MG/DL (0.55-1.30); POTASSIUM 3.5 MMOL/L (3.5-5.1); SODIUM 130 MMOL/L (136-145)
--- NOTE | 2017-07-03 06:02 | Consultation ---
DATE OF CONSULTATION: 07/02/2017 CARDIOLOGY CONSULTATION CONSULTING PHYSICIAN: Bruce Bello M.D. REQUESTING PHYSICIAN: Delvis Vick M.D. REASON FOR CONSULTATION: Supraventricular tachycardia. HISTORY OF PRESENT ILLNESS: This 86-year-old [place] male was admitted to the hospital yesterday with shortness of breath and weakness. He has a history of Mycobacterium avium complex pneumonia as well as bronchiectasis. He has been started on IV fluids and antimicrobials. He was also given a dose of potassium for a low level in the emergency room. Overnight, he had episodes of supraventricular tachycardia, at times with rates up to 180. On this basis, I have been asked to assist with further cardiovascular care. The patient is a reliable historian. He denies any known history of cardiovascular disease including heart attack, rheumatic heart disease, or irregular heartbeat. PAST MEDICAL HISTORY: Bronchiectasis, protein-calorie malnutrition, anemia of chronic disease, hypothyroidism, hypovitaminosis D, prostatic hypertrophy, osteoarthritis, and overactive bladder. ALLERGIES: None. MEDICATIONS: Reviewed. SOCIAL HISTORY: No history of smoking, alcohol, or substance abuse. FAMILY HISTORY: Noncontributory. REVIEW OF SYSTEMS: A 10-point review of systems performed, all systems negative other than noted above. PHYSICAL EXAMINATION: VITAL SIGNS: Blood pressure 110/60, heart rate 106, respiratory rate 26, and afebrile. Monitor now revealed sinus tachycardia with frequent atrial ectopics. HEENT: Temporal wasting. Pale conjunctivae. Oropharynx clear. NECK: Supple. No jugular venous distention. LUNGS: With coarse breath sounds. CARDIAC: Regular rhythm. Rapid rate. Normal S1, S2 with no murmur. ABDOMEN: Soft. EXTREMITIES: No edema. LABORATORY AND DIAGNOSTIC DATA: Sodium 131, potassium 3.5, chloride 95, bicarbonate 30, BUN 8, and creatinine 0.7. Albumin 1.9. TSH 7.3. White count 7.2 and hemoglobin 8.4. EKG on 07/01/2017 revealed sinus rhythm, PAC, left posterior fascicular block, and poor R-wave progression. IMPRESSION: 1. Paroxysmal supraventricular tachycardia. 2. Premature atrial contractions. 3. Paroxysmal atrial fibrillation. 4. Mycobacterium intracellulare pneumonia. 5. Bronchiectasis. 6. Hypokalemia. 7. Macrocytic anemia. 8. Severe protein-calorie malnutrition. 9. Hypothyroidism. PLAN: 1. Additional potassium replacement. 2. Check magnesium. 3. Start diltiazem to increase the threshold for atrial arrhythmias. 4. Consider amiodarone. 5. Protein supplements. 6. Antimicrobials per Infectious Disease government operations consultant. 7. We would defer increasing thyroid replacement at this time. Bruce Bello M.D. DR: WHITNEY JOB#: [id number] CC:
[2017-07-03] MEDS: Benzonatate 100mg Perles ORAL SCH ×3 (08:55→17:24)
[2017-07-03] MEDS: Azithromycin 250mg tab ORAL SCH (08:55)
--- NOTE | 2017-07-03 10:14 | Diagnostic Imaging Report ---
Indication: Headache Technique: Contiguous 5 mm thick transaxial imaging of the head obtained in a Siemens Sensation [address] scanner. Soft tissue and bone windows generated. Automatic Exposure Control was utilized. Total Dose length Product (DLP): [address] Dose Index Volume (CTDIvol): 70.38, 0.15 mGy Comparison: none Findings: Small, hypodense subdural hematomas are present bilaterally. Based on the density these are probably old. There is no mass effect or edema. There is generalized atrophy the brain noted. There is no acute hemorrhage. Osseous structures are unremarkable. 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 No associated mass effect or edema. Generalized atrophy the brain The CT scanner at [facility] is accredited by the [employer] and the scans are performed using dose optimization techniques as appropriate to a performed exam including Automatic Exposure control.
[2017-07-03] MEDS: Zosyn 3.375gm/50ml Premix 50 ML IVPB SCH ×2 (10:35→17:33)
[2017-07-03] MEDS ORDERED: Amiodarone 900mg in D5W 500ml IV SCH (11:00)
--- NOTE | 2017-07-03 12:26 | Wound Care Consultation ---
Wound Assessment Wound Assessment : Wound Number: 1 Wound Present on Admission: Yes New Wound: No Status Change of Wound: No Wound Location Body Site Modif: mid Wound Location Body Site: other - sacrococcygeal Wound Type: pressure ulcer Ronaldo Test: Does not Ronaldo Pressure Ulcer Stage: Deep Tissue Injury Wound Thickness: Full Thickness Wound Length: 8.0 Wound Width: 5.5 Wound Depth: utd Percent of Wound Purple/Maroon: 100 Wound Drainage Amount: None Wound Drainage Odor: None/Absent Tissue Surrounding Wound: Erythemic Wound General Appearance: Reddened - purple Wound Comment #1 Sacrococcygeal DTI pressure ulcer Recommendation -Local wound care per protocol -Keep clean and dry -Turn and reposition -Optimize nutrition -Low air loss SPR mattress -Offload both heels -Heel protector on both heels -Assess and f/u accordingly for any changes ASHLEY WITT RN Jul 03, 2017 12:26
--- NOTE | 2017-07-03 12:43 | Diagnostic Imaging Report ---
Indication: Pain Findings: 3 views of the left shoulder were obtained. No fracture or malalignment seen on this single view obtained. Bones are osteopenic. Extensive mixed interstitial and we'll are densities in the left lung noted. Impression: No obvious acute injury
--- NOTE | 2017-07-03 12:47 | Diagnostic Imaging Report ---
Indication: Neck Pain Findings: 2 views of the cervical spine were obtained. The study is significantly limited. A suboptimal open-mouth view and a suboptimal lateral view are submitted for interpretation. Bones are osteopenic. There is no obvious fracture. The lateral view is technically suboptimal as it is obliqued rather than lateral. There is no obvious soft tissue swelling. Impression: Technically nondiagnostic study. Patient was unstable and technologist was unable to complete the study.
--- NOTE | 2017-07-03 13:02 | Diagnostic Imaging Report ---
Indication: Dyspnea Comparison: 07/01/17 A single view chest radiograph was obtained. Findings: There is extensive chronic interstitial disease with areas of fibrosis noted bilaterally. There is bilateral pleural thickening at the apices worse on the right. Superimposed airspace disease noted bilaterally and groundglass opacities. The bones are osteopenic. Heart size is difficult to evaluate but probably unchanged. Impression: Suspected pneumonia or pulmonary edema bilaterally. Extensive pulmonary fibrosis
--- NOTE | 2017-07-03 13:05 | Pulmonology Progress Note ---
Assessment/Plan Assessment/Plan 1. Progressive Mycobacterium avium complex pneumonia. 2. Bronchiectasis with acute pneumonia 3. Acute resp failure 4. Anemia of chronic disease. 5. Severe protein-calorie malnutrition. 6. Hypokalemia. 7. Hypotension, resolved with fluids and dehydration. 8. Sepsis 9. Rapid A fib, SVT fell out of bed, SVT, A fib w RVR transfer to ICU obtunded now on BiPAP due to low sat and SOB started abx per ID for MAC, adding bacterial coverage disc w son wants full code advised poor prognosis Subjective ROS Limited/Unobtainable: Yes Allergies: Coded Allergies: No Known Allergies (Unverified , 07/01/17) Subjective poor sleep Objective Last 24 Hour Vital Signs Date Time Temp Pulse Resp B/P (MAP) Pulse Ox O2 Delivery O2 Flow Rate FiO2 07/03/17 12:39 87 34 91 Facial 100 07/03/17 12:30 87 32 112/72 92 Bi-pap 100 07/03/17 12:00 88 07/03/17 12:00 97.2 87 34 137/73 92 Bi-pap 100 07/03/17 12:00 87 32 112/72 92 Bi-pap 100 07/03/17 11:30 90 34 131/62 92 Bi-pap 95 07/03/17 11:00 89 31 146/63 93 Bi-pap 95 07/03/17 10:46 88 34 93 Bi-pap 90 07/03/17 10:42 87 35 93 Bi-pap 90 07/03/17 10:41 87 38 94 Facial 90 07/03/17 10:30 88 31 107/49 93 Bi-pap 90 07/03/17 10:00 90 29 144/104 95 Bi-pap 90 07/03/17 09:30 92 30 140/74 97 Bi-pap 90 07/03/17 09:00 86 30 121/70 98 Bi-pap 90 07/03/17 08:34 85 36 97 Facial 100 07/03/17 08:30 86 30 109/66 98 Bi-pap 100 07/03/17 08:00 88 07/03/17 08:00 97.0 85 34 119/59 85 Non-Rebreather 100 07/03/17 07:30 84 30 111/50 100 Bi-pap 90 07/03/17 07:00 83 29 112/50 97 Bi-pap 90 07/03/17 06:52 81 36 100 Bi-pap 100 07/03/17 06:50 84 37 98 Bi-pap 100 07/03/17 06:48 84 37 99 Facial 100 07/03/17 06:48 99 Bi-pap 100 07/03/17 06:48 Bi-pap 100 07/03/17 06:30 84 32 108/56 99 Bi-pap 100 07/03/17 06:00 86 32 116/58 98 Bi-pap 100 07/03/17 05:30 84 24 106/52 100 Bi-pap 100 07/03/17 05:28 88 34 100 Facial 100 07/03/17 05:00 86 28 110/49 100 Bi-pap 100 07/03/17 04:30 86 30 114/49 100 Bi-pap 100 07/03/17 04:00 98.0 86 31 116/46 100 Bi-pap 100 07/03/17 04:00 86 34 98 Bi-pap 100 07/03/17 04:00 86 35 100 Bi-pap 100 07/03/17 04:00 87 07/03/17 03:30 86 30 103/46 95 Bi-pap 100 07/03/17 03:30 87 35 100 Facial 100 07/03/17 03:00 87 30 103/46 95 Bi-pap 100 07/03/17 02:00 83 31 92/52 96 Bi-pap 100 07/03/17 01:53 97.1 07/03/17 01:28 102 37 94 Facial 100 07/03/17 01:00 99 21 106/45 99 Bi-pap 100 07/03/17 00:07 99 40 97 Facial 100 07/03/17 00:00 95 07/03/17 00:00 97.1 101 30 130/53 96 Bi-pap 100 07/02/17 23:16 120 124/67 07/02/17 23:08 120 24 80 Non-Rebreather 15.0 100 07/02/17 23:07 116 24 72 Non-Rebreather 15.0 100 07/02/17 23:00 112 30 134/60 91 Non-Rebreather 100 07/02/17 22:18 106 124/67 07/02/17 22:00 112 30 132/76 91 Non-Rebreather 100 07/02/17 21:30 106 30 124/67 91 Non-Rebreather 100 07/02/17 21:00 98.0 113 30 115/55 91 Non-Rebreather 100 07/02/17 21:00 103 07/02/17 19:00 Non-Rebreather 15.0 100 07/02/17 19:00 4 Non-Rebreather 15.0 100 07/02/17 19:00 Non-Rebreather 15.0 100 07/02/17 19:00 Non-Rebreather 15.0 100 07/02/17 16:00 97.6 110 24 136/59 91 Nasal Cannula 3.0 07/02/17 16:00 96 07/02/17 15:43 102 26 94 Nasal Cannula 2.0 28 07/02/17 15:35 105 26 Nasal Cannula 2.0 28 07/02/17 14:34 106 110/61 Intake and Output 07/03/17 07/04/17 19:00 07:00 Intake Total 544.98 ml Output Total 125 ml Balance 419.98 ml Intake Oral 20 ml IV Total 524.98 ml Output Urine Total 125 ml # Bowel Movements 2 General Appearance: cachetic, other - mild resp distress HEENT: atraumatic Respiratory/Chest: crackles/rales, rhonchi Cardiovascular: tachycardia, irregularly irregular Abdomen: soft, non tender Microbiology Date/Time Source Procedure Growth Status 07/01/17 07:05 Blood Blood Culture - Preliminary NO GROWTH AFTER 24 HOURS Resulted 07/01/17 06:50 Blood Blood Culture - Preliminary NO GROWTH AFTER 24 HOURS Resulted 07/01/17 20:30 Sputum Induced Gram Stain - Final Resulted 07/01/17 20:30 Sputum Induced Sputum Culture - Preliminary NO GROWTH AFTER 24 HOURS Resulted Laboratory Tests 07/02/17 17:10: Arterial Blood pH 7.439, Arterial Blood Partial Pressure CO2 38.2, Arterial Blood Partial Pressure O2 63.4L, Arterial Blood HCO3 25.3, Arterial Blood Oxygen Saturation 90.9L, Arterial Blood Base Excess 1.1, Moses Test Positive 07/03/17 04:45: White Blood Count 13.9#H, Red Blood Count 2.59L, Hemoglobin 7.9L, Hematocrit 24.4L, Mean Corpuscular Volume 94, Mean Corpuscular Hemoglobin 30.4, Mean Corpuscular Hemoglobin Concent 32.3, Red Cell Distribution Width 13.4, Platelet Count 302, Mean Platelet Volume 5.1L, Neutrophils (%) (Auto) , Lymphocytes (%) ( Auto) , Monocytes (%) (Auto) , Eosinophils (%) (Auto) , Basophils (%) (Auto) , Sodium Level 130L, Potassium Level 3.5, Chloride Level 95L, Carbon Dioxide Level 29, Anion Gap 7, Blood Urea Nitrogen 9, Creatinine 0.6, Estimat Glomerular Filtration Rate , Glucose Level 171H, Calcium Level 8.3L, Magnesium Level 1.5L Current Medications Medications (Trade) Dose Ordered Sig/Tanya Route PRN Reason Start Time Stop Time Status Last Admin Dose Admin Acetaminophen (Tylenol) 650 mg Q6H PRN ORAL Mild Pain/Temp > 100.5 07/02/17 23:45 08/01/17 23:44 Acetaminophen/ Hydrocodone Bitart ([place] 5/325) 1 tab Q4H PRN ORAL Moderate Pain (Pain Scale 4-6) 07/02/17 23:45 07/09/17 23:44 07/03/17 00:54 Albuterol/ Ipratropium (Albuterol/ Ipratropium) 3 ml Q4HRT HHN 07/02/17 23:00 07/06/17 11:29 07/03/17 10:41 Alfuzosin HCl (Uroxatrol) 10 mg DAILY ORAL 07/03/17 09:00 08/01/17 08:59 Amiodarone HCl 900 mg/Dextrose 500 ml @ 0 mls/hr Q24H IV 07/03/17 11:00 07/04/17 03:29 07/03/17 10:22 Azithromycin (Zithromax) 250 mg DAILY ORAL 07/03/17 09:00 07/09/17 08:59 Benzonatate (Tessalon Perles) 100 mg THREE TIMES A DAY ORAL 07/03/17 09:00 07/31/17 12:59 Cetylpyridinium Chloride (Cepacol) 1 lozenge Q2H PRN CHI throat pain 07/02/17 22:00 07/31/17 11:59 Ethambutol HCl (Myambutol) 800 mg DAILY ORAL 07/03/17 09:00 08/01/17 08:59 Levothyroxine Sodium (Synthroid) 75 mcg ACBREAKFAST ORAL 07/03/17 06:30 08/02/17 06:29 07/03/17 06:54 Magnesium Sulfate 100 ml @ 100 mls/hr Q1H IVPB 07/03/17 12:45 07/03/17 14:44 UNV Piperacillin/ Tazobactam/ Dextrose 50 ml @ 12.5 mls/hr Q8H IVPB 07/03/17 10:00 07/10/17 09:59 07/03/17 10:35 Rifampin (Rifadin) 600 mg DAILY ORAL 07/03/17 09:00 08/01/17 08:59 Sodium Chloride 1,000 ml @ 75 mls/hr [id number] IV 07/02/17 21:30 08/01/17 21:29 07/03/17 10:22 Trazodone HCl (Desyrel) 100 mg BEDTIME ORAL 07/02/17 22:00 08/01/17 21:59 07/02/17 22:18 Vancomycin HCl (Vanco rx to dose) 1 ea DAILY PRN MISC Per rx protocol 07/03/17 08:45 08/02/17 08:44 Vancomycin HCl 1 gm/Dextrose 275 ml @ 183.708 mls/hr Q24H IVPB 07/04/17 15:00 07/09/17 14:59 Vancomycin HCl/ Dextrose 250 ml @ 166.667 mls/hr ONCE ONCE IVPB 07/03/17 14:00 07/03/17 15:29 Zolpidem Tartrate (Ambien) 5 mg HSPRN PRN ORAL Insomnia 07/02/17 21:00 07/09/17 20:59 NILSA VALDIVIA Jul 03, 2017 13:05
--- NOTE | 2017-07-03 13:55 | Infectious Diseases Prog Note ---
Assessment/Plan Assessment/Plan ASSESSMENT AND PLAN: 1. possible mac/kalie pna, ? new aspiration/hcap pna, ? cap pna, uri/bronchitis, sob, bipap, ? 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 Vick 2. bipa, icu 3. The patient has hypothyroidism. 4. Atrial fibrillation. 5. Anemia. 6. Malnutrition. 7. Weight loss. 8. Dehydration. 9. Pulmonary treatment. 10. Past medical history noted. 11. No known allergies. 12. Social history negative. 13. Family history noncontributory. 14. MAR was noted. 15. Case discussed with RN. 16. Case discussed with Dr. Vick. 17. Continue treatment per Dr. Vick and other consultants. Subjective Constitutional: Reports: fatigue, other - responsive , Denies: fever HEENT: Reports: congestion Respiratory: Reports: shortness of breath, other - on bipap Cardiovascular: Denies: chest pain Gastrointestinal/Abdominal: Denies: nausea, vomiting, diarrhea Genitourinary: Reports: other - no dove Neurologic: Reports: weakness Psychiatric: Denies: depression Skin: Denies: rash Hematologic: Denies: bleeding Musculoskeletal: Denies: pain Allergies: Coded Allergies: No Known Allergies (Unverified , 07/01/17) Objective Vital Signs Last 24 Hour Vital Signs Date Time Temp Pulse Resp B/P (MAP) Pulse Ox O2 Delivery O2 Flow Rate FiO2 07/03/17 13:00 87 32 138/62 92 Bi-pap 100 07/03/17 12:39 87 34 91 Facial 100 07/03/17 12:30 87 32 112/72 92 Bi-pap 100 07/03/17 12:00 88 07/03/17 12:00 97.2 87 34 137/73 92 Bi-pap 100 07/03/17 12:00 87 32 112/72 92 Bi-pap 100 07/03/17 11:30 90 34 131/62 92 Bi-pap 95 07/03/17 11:00 89 31 146/63 93 Bi-pap 95 07/03/17 10:46 88 34 93 Bi-pap 90 07/03/17 10:42 87 35 93 Bi-pap 90 07/03/17 10:41 87 38 94 Facial 90 07/03/17 10:30 88 31 107/49 93 Bi-pap 90 07/03/17 10:00 90 29 144/104 95 Bi-pap 90 07/03/17 09:30 92 30 140/74 97 Bi-pap 90 07/03/17 09:00 86 30 121/70 98 Bi-pap 90 07/03/17 08:34 85 36 97 Facial 100 07/03/17 08:30 86 30 109/66 98 Bi-pap 100 07/03/17 08:00 88 07/03/17 08:00 97.0 85 34 119/59 85 Non-Rebreather 100 07/03/17 07:30 84 30 111/50 100 Bi-pap 90 07/03/17 07:00 83 29 112/50 97 Bi-pap 90 07/03/17 06:52 81 36 100 Bi-pap 100 07/03/17 06:50 84 37 98 Bi-pap 100 07/03/17 06:48 84 37 99 Facial 100 07/03/17 06:48 99 Bi-pap 100 07/03/17 06:48 Bi-pap 100 07/03/17 06:30 84 32 108/56 99 Bi-pap 100 07/03/17 06:00 86 32 116/58 98 Bi-pap 100 07/03/17 05:30 84 24 106/52 100 Bi-pap 100 07/03/17 05:28 88 34 100 Facial 100 07/03/17 05:00 86 28 110/49 100 Bi-pap 100 07/03/17 04:30 86 30 114/49 100 Bi-pap 100 07/03/17 04:00 98.0 86 31 116/46 100 Bi-pap 100 07/03/17 04:00 86 34 98 Bi-pap 100 07/03/17 04:00 86 35 100 Bi-pap 100 07/03/17 04:00 87 07/03/17 03:30 86 30 103/46 95 Bi-pap 100 07/03/17 03:30 87 35 100 Facial 100 07/03/17 03:00 87 30 103/46 95 Bi-pap 100 07/03/17 02:00 83 31 92/52 96 Bi-pap 100 07/03/17 01:53 97.1 07/03/17 01:28 102 37 94 Facial 100 11/8/17 01:00 99 21 106/45 99 Bi-pap 100 07/03/17 00:07 99 40 97 Facial 100 07/03/17 00:00 95 07/03/17 00:00 97.1 101 30 130/53 96 Bi-pap 100 07/02/17 23:16 120 124/67 07/02/17 23:08 120 24 80 Non-Rebreather 15.0 100 07/02/17 23:07 116 24 72 Non-Rebreather 15.0 100 07/02/17 23:00 112 30 134/60 91 Non-Rebreather 100 07/02/17 22:18 106 124/67 07/02/17 22:00 112 30 132/76 91 Non-Rebreather 100 07/02/17 21:30 106 30 124/67 91 Non-Rebreather 100 07/02/17 21:00 98.0 113 30 115/55 91 Non-Rebreather 100 07/02/17 21:00 103 07/02/17 19:00 Non-Rebreather 15.0 100 07/02/17 19:00 4 Non-Rebreather 15.0 100 07/02/17 19:00 Non-Rebreather 15.0 100 07/02/17 19:00 Non-Rebreather 15.0 100 07/02/17 16:00 97.6 110 24 136/59 91 Nasal Cannula 3.0 07/02/17 16:00 96 07/02/17 15:43 102 26 94 Nasal Cannula 2.0 28 07/02/17 15:35 105 26 Nasal Cannula 2.0 28 07/02/17 14:34 106 110/61 Height (Feet): 5 Height (Inches): 5.00 Weight (Pounds): 119 General Appearance: no acute distress HEENT: normocephalic, atraumatic, anicteric, mucous membranes moist, EOMI, pharynx normal, supple, no JVD Respiratory/Chest: crackles/rales, rhonchi - bilaterally Cardiovascular: normal rate, regular rhythm, no gallop/murmur, no JVD Abdomen: normal bowel sounds, soft, non tender, no organomegaly, non distended Genitourinary: other - no dove, no cva pain Extremities: no cyanosis Skin: no rash Neurologic/Psychiatric: attractions associate II-XII grossly normal, alert, responsive, other - + generalized weakness, responsive Musculoskeletal: no effusion Objective 07/02 - chest x-ray: Findings: There is extensive chronic interstitial disease with areas of fibrosis noted bilaterally. There is bilateral pleural thickening at the apices worse on the right. Superimposed airspace disease noted bilaterally and groundglass opacities. The bones are osteopenic. Heart size is difficult to evaluate but probably unchanged. Impression: Suspected pneumonia or pulmonary edema bilaterally. Extensive pulmonary fibrosis Microbiology Date/Time Source Procedure Growth Status 07/01/17 07:05 Blood Blood Culture - Preliminary NO GROWTH AFTER 24 HOURS Resulted 07/01/17 06:50 Blood Blood Culture - Preliminary NO GROWTH AFTER 24 HOURS Resulted 07/01/17 20:30 Sputum Induced Gram Stain - Final Resulted 07/01/17 20:30 Sputum Induced Sputum Culture - Preliminary NO GROWTH AFTER 24 HOURS Resulted Laboratory Tests Test 07/02/17 17:10 07/03/17 04:45 Arterial Blood pH 7.439 (7.350-7.450) Arterial Blood Partial Pressure CO2 38.2 mmHg (35.0-45.0) Arterial Blood Partial Pressure O2 63.4 mmHg (75.0-100.0) L Arterial Blood HCO3 25.3 mmol/L (22.0-26.0) Arterial Blood Oxygen Saturation 90.9 % (92.0-98.0) L Arterial Blood Base Excess 1.1 Moses Test Positive White Blood Count 13.9 K/UL (4.8-10.8) #H Red Blood Count 2.59 M/UL (4.70-6.10) L Hemoglobin 7.9 G/DL (14.2-18.0) L Hematocrit 24.4 % (42.0-52.0) L Mean Corpuscular Volume 94 FL (80-99) Mean Corpuscular Hemoglobin 30.4 PG (27.0-31.0) Mean Corpuscular Hemoglobin Concent 32.3 G/DL (32.0-36.0) Red Cell Distribution Width 13.4 % (11.6-14.8) Platelet Count 302 K/UL (150-450) Mean Platelet Volume 5.1 FL (6.5-10.1) L Neutrophils (%) (Auto) % (45.0-75.0) Lymphocytes (%) (Auto) % (20.0-45.0) Monocytes (%) (Auto) % (1.0-10.0) Eosinophils (%) (Auto) % (0.0-3.0) Basophils (%) (Auto) % (0.0-2.0) Sodium Level 130 MMOL/L (136-145) L Potassium Level 3.5 MMOL/L (3.5-5.1) Chloride Level 95 MMOL/L (98-107) L Carbon Dioxide Level 29 MMOL/L (21-32) Anion Gap 7 mmol/L (5-15) Blood Urea Nitrogen 9 mg/dL (7-18) Creatinine 0.6 MG/DL (0.55-1.30) Estimat Glomerular Filtration Rate mL/min (>60) Glucose Level 171 MG/DL (74-106) H Calcium Level 8.3 MG/DL (8.5-10.1) L Magnesium Level 1.5 MG/DL (1.8-2.4) L Current Medications Medications (Trade) Dose Ordered Sig/Tanya Route PRN Reason Start Time Stop Time Status Last Admin Dose Admin Acetaminophen (Tylenol) 650 mg Q6H PRN ORAL Mild Pain/Temp > 100.5 07/02/17 23:45 08/01/17 23:44 Acetaminophen/ Hydrocodone Bitart ([place] 5/325) 1 tab Q4H PRN ORAL Moderate Pain (Pain Scale 4-6) 07/02/17 23:45 07/09/17 23:44 07/03/17 00:54 Albuterol/ Ipratropium (Albuterol/ Ipratropium) 3 ml Q4HRT HHN 07/02/17 23:00 07/06/17 11:29 07/03/17 10:41 Alfuzosin HCl (Uroxatrol) 10 mg DAILY ORAL 07/03/17 09:00 08/01/17 08:59 Amiodarone HCl 900 mg/Dextrose 500 ml @ 0 mls/hr Q24H IV 07/03/17 11:00 07/04/17 03:29 07/03/17 10:22 Azithromycin (Zithromax) 250 mg DAILY ORAL 07/03/17 09:00 07/09/17 08:59 Benzonatate (Tessalon Perles) 100 mg THREE TIMES A DAY ORAL 07/03/17 09:00 07/31/17 12:59 Cetylpyridinium Chloride (Cepacol) 1 lozenge Q2H PRN CHI throat pain 07/02/17 22:00 07/31/17 11:59 Ethambutol HCl (Myambutol) 800 mg DAILY ORAL 07/03/17 09:00 08/01/17 08:59 Levothyroxine Sodium (Synthroid) 75 mcg ACBREAKFAST ORAL 07/03/17 06:30 08/02/17 06:29 07/03/17 06:54 Magnesium Sulfate 100 ml @ 100 mls/hr Q1H IVPB 07/03/17 14:00 07/03/17 15:59 Piperacillin/ Tazobactam/ Dextrose 50 ml @ 12.5 mls/hr Q8H IVPB 07/03/17 10:00 07/10/17 09:59 07/03/17 10:35 Rifampin (Rifadin) 600 mg DAILY ORAL 07/03/17 09:00 08/01/17 08:59 Sodium Chloride 1,000 ml @ 75 mls/hr [id number] IV 07/02/17 21:30 08/01/17 21:29 07/03/17 10:22 Trazodone HCl (Desyrel) 100 mg BEDTIME ORAL 07/02/17 22:00 08/01/17 21:59 07/02/17 22:18 Vancomycin HCl (Vanco rx to dose) 1 ea DAILY PRN MISC Per rx protocol 07/03/17 08:45 08/02/17 08:44 Vancomycin HCl 1 gm/Dextrose 275 ml @ 183.708 mls/hr Q24H IVPB 07/04/17 15:00 07/09/17 14:59 Vancomycin HCl/ Dextrose 250 ml @ 166.667 mls/hr ONCE ONCE IVPB 07/03/17 14:00 07/03/17 15:29 07/03/17 13:10 Zolpidem Tartrate (Ambien) 5 mg HSPRN PRN ORAL Insomnia 07/02/17 21:00 07/09/17 20:59 BRITTANI LAWRENCE Jul 03, 2017 13:55
[2017-07-03] MEDS ORDERED: Vancomycin 1250mg/D5W 250ml IVPB ONE (14:00)
--- NOTE | 2017-07-03 14:49 | Diagnostic Imaging Report ---
Indication: Right shoulder pain and injury Findings: Single view of the right shoulder was obtained. No obvious fracture or malalignment seen on this single view. Bones are osteopenic. Extensive lung disease noted. Impression: No obvious injury
--- NOTE | 2017-07-03 14:50 | Diagnostic Imaging Report ---
Indication: Dyspnea Comparison: 07/02/17 A single view chest radiograph was obtained. Findings: Extensive bilateral infiltrates demonstrated versus pulmonary edema. Underlying extensive fibrosis of the lungs demonstrated. Heart is obscured and not well violated in terms of size. Impression: No significant change from one day earlier
[2017-07-03] MEDS ORDERED: Fleet's Mineral Oil Enema RECTAL ONE (15:00)
[2017-07-03] MEDS ORDERED: D5W 275ml ONE (17:21)
[2017-07-03] MEDS ORDERED: D5W 550ml IV ONE (17:21)
[2017-07-03] MEDS ORDERED: Tubing IV Secondary IV ONE (17:21)
[2017-07-03] MEDS: TraZODone 100mg tab ORAL SCH (21:00)
--- NOTE | 2017-07-03 22:14 | Emergency Room Report ---
History of Present Illness General Chief Complaint: Dyspnea/Respdistress Source: Family Member Present Illness Allergies: Coded Allergies: No Known Allergies (Unverified , 07/01/17) Nursing Documentation-[facility] Past Medical History: No History, Except For Physical Exam Vital Signs Date Time Temp Pulse Resp B/P (MAP) Pulse Ox O2 Delivery O2 Flow Rate FiO2 07/01/17 06:42 97.0 83 36 98/50 97 Nasal Cannula 3.0 07/01/17 10:27 28 Procedures Critical Care Time Critical Care Time [address] Vick called me to ICU to evaluate this patient Worsening pO2 and PCO2 - not improving on BIPAP History of COPD Patient is full code - family agrees with intubation On monitor, Po2 75O2 on 100% FIO2 BIPAP Patient minimally responsive, moving all extremities Not following commands Patient intubated with Glidescope - see procedure note Dr Vick informed for sedation and post-intubation CXR Intubation Intubation : Consent: Emergent Time of Intubation: 22:12 Intubation Method: orotracheal Tube Size (cm): 7.5 Medications: Etomidate, Rocuronium Breath Sounds after Intubation: equal Intubation Complications: no complications Post Intubation Xray: Yes Attempts: One Patient Tolerated: Well Complications: None Medical Decision Making Diagnostic Impression: Primary Impression: Dyspnea Additional Impressions: MDS (myelodysplastic syndrome) Anemia Hypoxia Interstitial lung disease Acute respiratory failure with hypoxia and hypercapnia Last Vital Signs Date Time Temp Pulse Resp B/P (MAP) Pulse Ox O2 Delivery O2 Flow Rate FiO2 07/03/17 21:04 82 42 72 Facial 100 07/03/17 20:30 123/60 07/03/17 20:00 96.9 07/02/17 23:08 15.0 Status: improved Disposition: ADMITTED INPATIENT Condition: Critical Referrals: NON PHYSICIAN (PCP) NILSA MASCORRO M.D. Jul 03, 2017 22:14
[2017-07-04] VITALS (36 sets, daily range): BP systolic 0–132; BP diastolic 0–68
--- NOTE | 2017-07-04 00:15 | Progress Note ---
DATE: 07/03/2017 CARDIOLOGY PROGRESS NOTE SUBJECTIVE: The patient had a bad evening falling out of bed last night. He notes that he tried to go to the bathroom and tripped. He was transferred to the intensive care unit. He was noted to have rapid atrial fibrillation. The case was discussed with staff. We started IV amiodarone. The patient has converted since to sinus rhythm. OBJECTIVE: VITAL SIGNS: Blood pressure 112/72, heart rate 87, respiratory rate 32, afebrile. HEENT: Temporal wasting. Pale conjunctivae. LUNGS: Bilateral breath sounds with rhonchi. HEART: Regular rhythm and rate. Normal S1, S2 with a fourth heart sound. ABDOMEN: Soft. EXTREMITIES: No edema. LABORATORY DATA: White count 13.9, hemoglobin 7.9. Sodium 130, potassium 3.5, BUN 9, and creatinine 0.6. Magnesium 1.5. ABG, 7.24, 57, 40. IMPRESSION: 1. Acute respiratory acidosis. 2. Hypoxia. 3. Paroxysmal atrial fibrillation. 4. Acute respiratory failure. 5. Hypokalemia. 6. Hyponatremia. 7. Hypomagnesemia. 8. Hypothyroidism. 9. Premature atrial and ventricular ectopy. 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 11. Bronchiectasis. 12. Severe protein-calorie malnutrition. 13. Anemia. PLAN: Antimicrobials. BiPAP support. Respiratory hygiene. Additional potassium and IV magnesium. Discontinue diltiazem. Maintenance dose oral amiodarone. No additional thyroid replacement presently. Protein supplement. Transfuse for hemoglobin less than 8 gram. Condition remains critical with guarded prognosis. Bruce Bello M.D. DR: Jaspal JOB#: [id number] CC:
[2017-07-04] MEDS: Albuterol/Ipratropium 3ml neb HHN SCH ×5 (02:36→18:59)
[2017-07-04] MEDS: Zosyn 3.375gm/50ml Premix 50 ML IVPB SCH ×3 (02:39→17:31)
[2017-07-04] MEDS: LORazepam Inj 2mg/ml 1ml IV PRN ×2 (02:58→05:53)
[2017-07-04 05:34] LABS: HEMATOCRIT 27.5 % (42.0-52.0); HEMOGLOBIN 8.6 G/DL (14.2-18.0); MEAN CORPUSCULAR VOLUME 95 FL (80-99); PLATELET COUNT 203 K/UL (150-450); RED CELL DISTRIBUTION WIDTH 12.4 % (11.6-14.8)
[2017-07-04 05:47] LABS: WHITE BLOOD COUNT 25.6 K/UL (4.8-10.8)
[2017-07-04 06:27] LABS: ALANINE AMINOTRANSFERASE 54 U/L (12-78); ALBUMIN 1.6 G/DL (3.4-5.0); ALBUMIN/GLOBULIN RATIO 0.4 (1.0-2.7); ALKALINE PHOSPHATASE 94 U/L (46-116); ANION GAP 9 mmol/L (5-15); ASPARTATE AMINO TRANSFERASE 40 U/L (15-37); BILIRUBIN,TOTAL 1.4 MG/DL (0.2-1.0); BLOOD UREA NITROGEN 14 mg/dL (7-18); CALCIUM 8.2 MG/DL (8.5-10.1); CARBON DIOXIDE 27 MMOL/L (21-32); CHLORIDE 95 MMOL/L (98-107); CREATININE 0.8 MG/DL (0.55-1.30); POTASSIUM 3.9 MMOL/L (3.5-5.1); SODIUM 131 MMOL/L (136-145)
[2017-07-04 06:29] LABS: BILIRUBIN,DIRECT 0.6 MG/DL (0.0-0.3)
--- NOTE | 2017-07-04 08:57 | Pulmonology Progress Note ---
Assessment/Plan Assessment/Plan 1. Progressive Mycobacterium avium complex pneumonia. 2. Bronchiectasis with acute pneumonia 3. Acute resp failure, now intubated 4. Anemia of chronic disease. 5. Severe protein-calorie malnutrition. 6. Hypokalemia. 7. Hypotension 8. Sepsis, rising WBC 9. Rapid A fib, SVT, now ST remains alert intubated last night w high PCO2, hypoxia on BiPAP CXR w ARDS continued abx per ID for MAC, bacterial coverage full code poor prognosis Subjective ROS Limited/Unobtainable: Yes Respiratory: Reports: shortness of breath Allergies: Coded Allergies: No Known Allergies (Unverified , 07/01/17) Subjective poor sleep Objective Last 24 Hour Vital Signs Date Time Temp Pulse Resp B/P (MAP) Pulse Ox O2 Delivery O2 Flow Rate FiO2 07/04/17 08:39 78 28 100 07/04/17 07:28 72 26 95 Mechanical Ventilator 15.0 100 07/04/17 07:20 100 07/04/17 07:20 83 42 94 Mechanical Ventilator 15.0 100 07/04/17 07:18 83 28 100 07/04/17 07:00 84 27 103/68 89 Mechanical Ventilator 100 07/04/17 06:30 81 25 83/39 91 Mechanical Ventilator 100 07/04/17 06:00 83 30 78/37 96 Mechanical Ventilator 100 07/04/17 05:30 83 30 80/42 96 Mechanical Ventilator 100 07/04/17 05:00 78 28 78/31 96 Mechanical Ventilator 100 07/04/17 05:00 77 27 100 07/04/17 04:30 78 28 100/37 94 Mechanical Ventilator 100 07/04/17 04:00 96.0 75 25 84/60 90 Mechanical Ventilator 100 07/04/17 04:00 80 07/04/17 04:00 75 07/04/17 03:30 73 21 76/27 93 Mechanical Ventilator 80 07/04/17 03:00 75 21 82/41 93 Mechanical Ventilator 80 07/04/17 02:47 76 15 95 Mechanical Ventilator 80 07/04/17 02:36 80 07/04/17 02:35 75 23 95 Mechanical Ventilator 80 07/04/17 02:32 75 23 80 07/04/17 02:30 77 16 88/48 94 Mechanical Ventilator 80 07/04/17 02:00 77 16 105/48 96 Mechanical Ventilator 80 07/04/17 02:00 77 16 83/43 96 Mechanical Ventilator 80 07/04/17 01:30 78 16 88/47 98 Mechanical Ventilator 80 07/04/17 01:09 75 16 80 07/04/17 01:00 75 16 103/51 96 Mechanical Ventilator 80 07/04/17 00:30 76 15 92/49 97 Mechanical Ventilator 80 07/04/17 00:00 80 07/04/17 00:00 97.0 77 15 97/50 98 Mechanical Ventilator 80 07/04/17 00:00 77 07/03/17 23:30 98 15 109/56 98 Mechanical Ventilator 80 07/03/17 23:20 80 07/03/17 23:00 84 15 118/59 100 Mechanical Ventilator 100 07/03/17 22:50 85 15 100 Mechanical Ventilator 100 07/03/17 22:42 100 07/03/17 22:41 80 15 100 Mechanical Ventilator 100 07/03/17 22:31 80 15 100 07/03/17 22:30 84 15 123/63 100 Mechanical Ventilator 100 07/03/17 22:00 100 07/03/17 22:00 79 22 115/53 100 Mechanical Ventilator 100 07/03/17 21:30 82 39 115/53 69 Bi-pap 100 07/03/17 21:04 82 42 72 Facial 100 07/03/17 21:00 82 39 115/53 69 Bi-pap 100 07/03/17 20:30 82 39 123/60 70 Bi-pap 100 07/03/17 20:00 82 07/03/17 20:00 96.9 83 38 120/80 79 Bi-pap 100 07/03/17 19:35 81 40 88 Bi-pap 100 07/03/17 19:30 82 35 122/54 81 Bi-pap 100 07/03/17 19:24 100 07/03/17 19:24 80 42 88 Bi-pap 100 07/03/17 19:22 80 42 88 Facial 100 07/03/17 19:00 84 31 113/63 85 Bi-pap 100 07/03/17 18:30 82 31 133/54 89 Bi-pap 100 07/03/17 18:00 82 31 115/55 89 Bi-pap 100 07/03/17 17:30 82 31 115/55 89 Bi-pap 100 07/03/17 17:00 81 32 114/49 89 Bi-pap 100 07/03/17 16:44 85 36 80 Facial 100 07/03/17 16:30 84 32 117/50 85 Bi-pap 100 07/03/17 16:00 100 07/03/17 16:00 86 07/03/17 16:00 97.0 83 34 118/52 85 Bi-pap 100 07/03/17 15:30 87 32 108/48 86 Bi-pap 100 07/03/17 15:00 85 32 117/53 81 Bi-pap 100 07/03/17 14:44 84 34 82 Facial 100 07/03/17 14:43 84 36 80 Bi-pap 100 07/03/17 14:38 85 36 84 Bi-pap 100 07/03/17 14:30 85 35 121/74 79 Bi-pap 100 07/03/17 14:00 85 31 116/54 91 Bi-pap 100 07/03/17 13:30 84 31 127/66 92 Bi-pap 100 07/03/17 13:00 87 32 138/62 92 Bi-pap 100 07/03/17 12:39 87 34 91 Facial 100 07/03/17 12:30 87 32 112/72 92 Bi-pap 100 07/03/17 12:00 88 07/03/17 12:00 100 07/03/17 12:00 97.2 87 34 137/73 92 Bi-pap 100 07/03/17 12:00 87 32 112/72 92 Bi-pap 100 07/03/17 11:30 90 34 131/62 92 Bi-pap 95 07/03/17 11:00 89 31 146/63 93 Bi-pap 95 07/03/17 10:46 88 34 93 Bi-pap 90 07/03/17 10:42 87 35 93 Bi-pap 90 07/03/17 10:41 87 38 94 Facial 90 07/03/17 10:30 88 31 107/49 93 Bi-pap 90 07/03/17 10:00 90 29 144/104 95 Bi-pap 90 07/03/17 09:30 92 30 140/74 97 Bi-pap 90 07/03/17 09:00 86 30 121/70 98 Bi-pap 90 General Appearance: cachetic HEENT: atraumatic, anicteric Respiratory/Chest: rhonchi Cardiovascular: regular rhythm, tachycardia Microbiology Date/Time Source Procedure Growth Status 07/01/17 20:30 Sputum Induced Gram Stain - Final Complete 07/01/17 20:30 Sputum Induced Sputum Culture - Final NORMAL UPPER RESPIRATORY SHELIA PRESENT Complete Laboratory Tests 07/03/17 20:49: Arterial Blood pH 7.245*L, Arterial Blood Partial Pressure CO2 67.0*H, Arterial Blood Partial Pressure O2 40.2*L, Arterial Blood HCO3 28.4H, Arterial Blood Oxygen Saturation 70.6L, Arterial Blood Base Excess 0, Moses Test N/a 07/03/17 23:13: Arterial Blood pH 7.214*L, Arterial Blood Partial Pressure CO2 78.4*H, Arterial Blood Partial Pressure O2 167.7H, Arterial Blood HCO3 30.9H, Arterial Blood Oxygen Saturation 98.6H, Arterial Blood Base Excess 1.6, Moses Test N/a 07/04/17 04:15: White Blood Count 25.6#*H, Red Blood Count 2.90L, Hemoglobin 8.6L, Hematocrit 27.5L, Mean Corpuscular Volume 95, Mean Corpuscular Hemoglobin 29.6, Mean Corpuscular Hemoglobin Concent 31.2L, Red Cell Distribution Width 12.4, Platelet Count 203, Mean Platelet Volume 5.5L, Neutrophils (%) (Auto) , Lymphocytes (%) (Auto) , Monocytes (%) (Auto) , Eosinophils (%) (Auto) , Basophils (%) (Auto) , Neutrophils % (Manual) [Pending], Lymphocytes % (Manual) [Pending], Platelet Estimate [Pending], Platelet Morphology [Pending], Sodium Level 131L, Potassium Level 3.9, Chloride Level 95L, Carbon Dioxide Level 27, Anion Gap 9, Blood Urea Nitrogen 14, Creatinine 0.8, Estimat Glomerular Filtration Rate , Glucose Level 111H, Calcium Level 8.2L, Total Bilirubin 1.4H, Direct Bilirubin 0.6H, Aspartate Amino Transf (AST/SGOT) 40H, Alanine Aminotransferase (ALT/SGPT) 54, Alkaline Phosphatase 94, Total Protein 5.5L, Albumin 1.6L, Globulin 3.9, Albumin/Globulin Ratio 0.4L 07/04/17 04:45: Pro-B-Type Natriuretic Peptide [Pending] Current Medications Medications (Trade) Dose Ordered Sig/Tanya Route PRN Reason Start Time Stop Time Status Last Admin Dose Admin Acetaminophen (Tylenol) 650 mg Q6H PRN ORAL Mild Pain/Temp > 100.5 07/02/17 23:45 08/01/17 23:44 Acetaminophen/ Hydrocodone Bitart ([place] 5/325) 1 tab Q4H PRN ORAL Moderate Pain (Pain Scale 4-6) 07/02/17 23:45 07/09/17 23:44 07/03/17 00:54 Albuterol/ Ipratropium (Albuterol/ Ipratropium) 3 ml Q4HRT HHN 07/02/17 23:00 07/06/17 11:29 07/04/17 07:20 Alfuzosin HCl (Uroxatrol) 10 mg DAILY ORAL 07/03/17 09:00 08/01/17 08:59 Amiodarone HCl (Cordarone) 200 mg EVERY 12 HOURS ORAL 07/04/17 09:00 08/03/17 08:59 Azithromycin (Zithromax) 250 mg DAILY ORAL 07/03/17 09:00 07/09/17 08:59 Benzonatate (Tessalon Perles) 100 mg THREE TIMES A DAY ORAL 07/03/17 09:00 07/31/17 12:59 Cetylpyridinium Chloride (Cepacol) 1 lozenge Q2H PRN CHI throat pain 07/02/17 22:00 07/31/17 11:59 Ethambutol HCl (Myambutol) 800 mg DAILY ORAL 07/03/17 09:00 08/01/17 08:59 Levothyroxine Sodium (Synthroid) 75 mcg ACBREAKFAST ORAL 07/03/17 06:30 08/02/17 06:29 07/04/17 06:30 Lorazepam (Ativan 2mg/ml 1ml) 1 mg Q2H PRN IV For Anxiety 07/04/17 10:00 07/11/17 09:59 UNV Piperacillin/ Tazobactam/ Dextrose 50 ml @ 12.5 mls/hr Q8H IVPB 07/03/17 10:00 07/10/17 09:59 07/04/17 02:39 Rifampin (Rifadin) 600 mg DAILY ORAL 07/03/17 09:00 08/01/17 08:59 Sodium Chloride 1,000 ml @ 75 mls/hr [id number] IV 07/02/17 21:30 08/01/17 21:29 07/04/17 03:17 Trazodone HCl (Desyrel) 100 mg BEDTIME ORAL 07/02/17 22:00 08/01/17 21:59 07/02/17 22:18 Vancomycin HCl (Vanco rx to dose) 1 ea DAILY PRN MISC Per rx protocol 07/03/17 08:45 08/02/17 08:44 Vancomycin HCl 1 gm/Dextrose 275 ml @ 183.708 mls/hr Q24H IVPB 07/04/17 15:00 07/09/17 14:59 Zolpidem Tartrate (Ambien) 5 mg HSPRN PRN ORAL Insomnia 07/02/17 21:00 07/09/17 20:59 NILSA VALDIVIA Jul 04, 2017 08:57
[2017-07-04] MEDS ORDERED: LORazepam Inj 2mg/ml 1ml IV PRN (10:00)
[2017-07-04] MEDS: Azithromycin 250mg tab ORAL SCH (10:11)
[2017-07-04] MEDS: Amiodarone 200mg tab ORAL SCH ×2 (10:11→21:00)
[2017-07-04] MEDS: Benzonatate 100mg Perles ORAL SCH ×3 (10:11→17:31)
[2017-07-04] MEDS ORDERED: Sodium Chloride 500ML 550 ML IV ONE (11:15)
[2017-07-04] MEDS ORDERED: Sodium Chloride 500ML 550 ML IV SCH (11:15)
--- NOTE | 2017-07-04 11:48 | Infectious Diseases Prog Note ---
Assessment/Plan Assessment/Plan ASSESSMENT AND PLAN: 1. possible mac/kalie pna, ? new aspiration/hcap pna, ? 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 icu, vent 3. The patient has hypothyroidism. 4. Atrial fibrillation. 5. Anemia. 6. Malnutrition. 7. Weight loss. 8. Dehydration. 9. Pulmonary treatment. 10. Past medical history noted. 11. No known allergies. 12. Social history negative. 13. Family history noncontributory. 14. MAR was noted. 15. Case discussed with RN. 16. Case discussed with Dr. Vick. 17. Continue treatment per Dr. Vick and other consultants. Subjective Constitutional: Reports: fatigue, other - no intubated, fi02 - 100 %, Denies: fever HEENT: Reports: congestion Respiratory: Reports: shortness of breath Cardiovascular: Reports: other - less bp, no prressors Genitourinary: Reports: other - no dove Neurologic: Denies: headache Psychiatric: Denies: depression Skin: Denies: rash Hematologic: Denies: bleeding Musculoskeletal: Denies: pain Allergies: Coded Allergies: No Known Allergies (Unverified , 07/01/17) Objective Vital Signs Last 24 Hour Vital Signs Date Time Temp Pulse Resp B/P (MAP) Pulse Ox O2 Delivery O2 Flow Rate FiO2 07/04/17 11:08 79 20 97 Mechanical Ventilator 15.0 100 07/04/17 10:59 79 20 98 Mechanical Ventilator 15.0 100 07/04/17 10:59 100 07/04/17 10:51 82 25 100 07/04/17 10:00 79 26 59/31 98 Mechanical Ventilator 100 07/04/17 09:00 87 29 89/50 98 Mechanical Ventilator 100 07/04/17 08:39 78 28 100 07/04/17 08:00 97.4 86 28 87/45 98 Mechanical Ventilator 100 07/04/17 08:00 100 07/04/17 08:00 76 07/04/17 07:28 72 26 95 Mechanical Ventilator 15.0 100 07/04/17 07:20 100 07/04/17 07:20 83 42 94 Mechanical Ventilator 15.0 100 07/04/17 07:18 83 28 100 07/04/17 07:00 84 27 103/68 89 Mechanical Ventilator 100 07/04/17 06:30 81 25 83/39 91 Mechanical Ventilator 100 07/04/17 06:00 83 30 78/37 96 Mechanical Ventilator 100 07/04/17 05:30 83 30 80/42 96 Mechanical Ventilator 100 07/04/17 05:00 78 28 78/31 96 Mechanical Ventilator 100 07/04/17 05:00 77 27 100 07/04/17 04:30 78 28 100/37 94 Mechanical Ventilator 100 07/04/17 04:00 96.0 75 25 84/60 90 Mechanical Ventilator 100 07/04/17 04:00 80 07/04/17 04:00 75 07/04/17 03:30 73 21 76/27 93 Mechanical Ventilator 80 07/04/17 03:00 75 21 82/41 93 Mechanical Ventilator 80 07/04/17 02:47 76 15 95 Mechanical Ventilator 80 07/04/17 02:36 80 07/04/17 02:35 75 23 95 Mechanical Ventilator 80 07/04/17 02:32 75 23 80 07/04/17 02:30 77 16 88/48 94 Mechanical Ventilator 80 07/04/17 02:00 77 16 105/48 96 Mechanical Ventilator 80 07/04/17 02:00 77 16 83/43 96 Mechanical Ventilator 80 07/04/17 01:30 78 16 88/47 98 Mechanical Ventilator 80 07/04/17 01:09 75 16 80 07/04/17 01:00 75 16 103/51 96 Mechanical Ventilator 80 07/04/17 00:30 76 15 92/49 97 Mechanical Ventilator 80 07/04/17 00:00 80 07/04/17 00:00 97.0 77 15 97/50 98 Mechanical Ventilator 80 07/04/17 00:00 77 07/03/17 23:30 98 15 109/56 98 Mechanical Ventilator 80 07/03/17 23:20 80 07/03/17 23:00 84 15 118/59 100 Mechanical Ventilator 100 07/03/17 22:50 85 15 100 Mechanical Ventilator 100 07/03/17 22:42 100 07/03/17 22:41 80 15 100 Mechanical Ventilator 100 07/03/17 22:31 80 15 100 11/8/17 22:30 84 15 123/63 100 Mechanical Ventilator 100 07/03/17 22:00 100 07/03/17 22:00 79 22 115/53 100 Mechanical Ventilator 100 07/03/17 21:30 82 39 115/53 69 Bi-pap 100 07/03/17 21:04 82 42 72 Facial 100 07/03/17 21:00 82 39 115/53 69 Bi-pap 100 07/03/17 20:30 82 39 123/60 70 Bi-pap 100 07/03/17 20:00 82 07/03/17 20:00 96.9 83 38 120/80 79 Bi-pap 100 07/03/17 19:35 81 40 88 Bi-pap 100 07/03/17 19:30 82 35 122/54 81 Bi-pap 100 07/03/17 19:24 100 07/03/17 19:24 80 42 88 Bi-pap 100 07/03/17 19:22 80 42 88 Facial 100 07/03/17 19:00 84 31 113/63 85 Bi-pap 100 07/03/17 18:30 82 31 133/54 89 Bi-pap 100 07/03/17 18:00 82 31 115/55 89 Bi-pap 100 07/03/17 17:30 82 31 115/55 89 Bi-pap 100 07/03/17 17:00 81 32 114/49 89 Bi-pap 100 07/03/17 16:44 85 36 80 Facial 100 07/03/17 16:30 84 32 117/50 85 Bi-pap 100 07/03/17 16:00 100 07/03/17 16:00 86 07/03/17 16:00 97.0 83 34 118/52 85 Bi-pap 100 07/03/17 15:30 87 32 108/48 86 Bi-pap 100 07/03/17 15:00 85 32 117/53 81 Bi-pap 100 07/03/17 14:44 84 34 82 Facial 100 07/03/17 14:43 84 36 80 Bi-pap 100 07/03/17 14:38 85 36 84 Bi-pap 100 07/03/17 14:30 85 35 121/74 79 Bi-pap 100 07/03/17 14:00 85 31 116/54 91 Bi-pap 100 07/03/17 13:30 84 31 127/66 92 Bi-pap 100 07/03/17 13:00 87 32 138/62 92 Bi-pap 100 07/03/17 12:39 87 34 91 Facial 100 07/03/17 12:30 87 32 112/72 92 Bi-pap 100 07/03/17 12:00 88 07/03/17 12:00 100 07/03/17 12:00 97.2 87 34 137/73 92 Bi-pap 100 07/03/17 12:00 87 32 112/72 92 Bi-pap 100 Height (Feet): 5 Height (Inches): 5.00 Weight (Pounds): 121 General Appearance: other - on vent HEENT: normocephalic, atraumatic, anicteric, other - oral - inutbated Respiratory/Chest: crackles/rales, rhonchi - bilaterally Cardiovascular: normal rate, regular rhythm, no gallop/murmur Abdomen: normal bowel sounds, soft, non tender, non distended Genitourinary: other - + dove - urine clear Extremities: no cyanosis Skin: no rash Neurologic/Psychiatric: other - poorly responsive, on vent Lymphatic: no neck adenopathy Musculoskeletal: no effusion Objective 07/02 - chest x-ray: Findings: There is extensive chronic interstitial disease with areas of fibrosis noted bilaterally. There is bilateral pleural thickening at the apices worse on the right. Superimposed airspace disease noted bilaterally and groundglass opacities. The bones are osteopenic. Heart size is difficult to evaluate but probably unchanged. Impression: Suspected pneumonia or pulmonary edema bilaterally. Extensive pulmonary fibrosis 07/03 - chest x-ray - no change Microbiology Date/Time Source Procedure Growth Status 07/01/17 07:05 Blood Blood Culture - Preliminary NO GROWTH AFTER 48 HOURS Resulted 07/01/17 20:30 Sputum Induced Gram Stain - Final Complete 07/01/17 20:30 Sputum Induced Sputum Culture - Final NORMAL UPPER RESPIRATORY SHELIA PRESENT Complete Microbiology Date/Time Source Procedure Growth Status 07/01/17 20:30 Sputum Induced Gram Stain - Final Complete 07/01/17 20:30 Sputum Induced Sputum Culture - Final NORMAL UPPER RESPIRATORY SHELIA PRESENT Complete Laboratory Tests Test 07/03/17 20:49 07/03/17 23:13 07/04/17 04:15 07/04/17 04:45 Arterial Blood pH 7.245 (7.350-7.450) 7.214 (7.350-7.450) Arterial Blood Partial Pressure CO2 67.0 mmHg (35.0-45.0) *H 78.4 mmHg (35.0-45.0) *H Arterial Blood Partial Pressure O2 40.2 mmHg (75.0-100.0) 167.7 mmHg (75.0-100.0) H Arterial Blood HCO3 28.4 mmol/L (22.0-26.0) H 30.9 mmol/L (22.0-26.0) H Arterial Blood Oxygen Saturation 70.6 % (92.0-98.0) L 98.6 % (92.0-98.0) H Arterial Blood Base Excess 0 1.6 Moses Test N/a N/a White Blood Count 25.6 K/UL (4.8-10.8) #*H Red Blood Count 2.90 M/UL (4.70-6.10) L Hemoglobin 8.6 G/DL (14.2-18.0) L Hematocrit 27.5 % (42.0-52.0) L Mean Corpuscular Volume 95 FL (80-99) Mean Corpuscular Hemoglobin 29.6 PG (27.0-31.0) Mean Corpuscular Hemoglobin Concent 31.2 G/DL (32.0-36.0) L Red Cell Distribution Width 12.4 % (11.6-14.8) Platelet Count 203 K/UL (150-450) Mean Platelet Volume 5.5 FL (6.5-10.1) L Neutrophils (%) (Auto) % (45.0-75.0) Lymphocytes (%) (Auto) % (20.0-45.0) Monocytes (%) (Auto) % (1.0-10.0) Eosinophils (%) (Auto) % (0.0-3.0) Basophils (%) (Auto) % (0.0-2.0) Differential Total Cells Counted 100 Neutrophils % (Manual) 92 % (45-75) H Lymphocytes % (Manual) 1 % (20-45) L Monocytes % (Manual) 1 % (1-10) Eosinophils % (Manual) 0 % (0-3) Basophils % (Manual) 0 % (0-2) Band Neutrophils 6 % (0-8) Platelet Estimate Adequate Platelet Morphology Normal Hypochromasia 2+ Anisocytosis 1+ Sodium Level 131 MMOL/L (136-145) L Potassium Level 3.9 MMOL/L (3.5-5.1) Chloride Level 95 MMOL/L (98-107) L Carbon Dioxide Level 27 MMOL/L (21-32) Anion Gap 9 mmol/L (5-15) Blood Urea Nitrogen 14 mg/dL (7-18) Creatinine 0.8 MG/DL (0.55-1.30) Estimat Glomerular Filtration Rate mL/min (>60) Glucose Level 111 MG/DL (74-106) H Calcium Level 8.2 MG/DL (8.5-10.1) L Total Bilirubin 1.4 MG/DL (0.2-1.0) H Direct Bilirubin 0.6 MG/DL (0.0-0.3) H Aspartate Amino Transf (AST/SGOT) 40 U/L (15-37) H Alanine Aminotransferase (ALT/SGPT) 54 U/L (12-78) Alkaline Phosphatase 94 U/L (46-116) Total Protein 5.5 G/DL (6.4-8.2) L Albumin 1.6 G/DL (3.4-5.0) L Globulin 3.9 g/dL Albumin/Globulin Ratio 0.4 (1.0-2.7) L Pro-B-Type Natriuretic Peptide 4116 pg/mL (0-125) H Current Medications Medications (Trade) Dose Ordered Sig/Tanya Route PRN Reason Start Time Stop Time Status Last Admin Dose Admin Acetaminophen (Tylenol) 650 mg Q6H PRN ORAL Mild Pain/Temp > 100.5 07/02/17 23:45 08/01/17 23:44 Acetaminophen/ Hydrocodone Bitart ([place] 5/325) 1 tab Q4H PRN ORAL Moderate Pain (Pain Scale 4-6) 07/02/17 23:45 07/09/17 23:44 07/03/17 00:54 Albuterol/ Ipratropium (Albuterol/ Ipratropium) 3 ml Q4HRT HHN 07/02/17 23:00 07/06/17 11:29 07/04/17 10:59 Alfuzosin HCl (Uroxatrol) 10 mg DAILY ORAL 07/03/17 09:00 08/01/17 08:59 11/9/17 10:11 Amiodarone HCl (Cordarone) 200 mg EVERY 12 HOURS ORAL 07/04/17 09:00 08/03/17 08:59 07/04/17 10:11 Azithromycin (Zithromax) 250 mg DAILY ORAL 07/03/17 09:00 07/09/17 08:59 07/04/17 10:11 Benzonatate (Tessalon Perles) 100 mg THREE TIMES A DAY ORAL 07/03/17 09:00 07/31/17 12:59 07/04/17 10:11 Cetylpyridinium Chloride (Cepacol) 1 lozenge Q2H PRN CHI throat pain 07/02/17 22:00 07/31/17 11:59 Ethambutol HCl (Myambutol) 800 mg DAILY ORAL 07/03/17 09:00 08/01/17 08:59 07/04/17 10:11 Levothyroxine Sodium (Synthroid) 75 mcg ACBREAKFAST ORAL 07/03/17 06:30 08/02/17 06:29 07/04/17 06:30 Lorazepam (Ativan 2mg/ml 1ml) 1 mg Q2H PRN IV For Anxiety 07/04/17 10:00 07/11/17 09:59 07/04/17 09:46 Piperacillin/ Tazobactam/ Dextrose 50 ml @ 12.5 mls/hr Q8H IVPB 07/03/17 10:00 07/10/17 09:59 07/04/17 10:11 Rifampin (Rifadin) 600 mg DAILY ORAL 07/03/17 09:00 08/01/17 08:59 07/04/17 10:12 Sodium Chloride 550 ml @ 999 mls/hr Q34M ONCE IV 07/04/17 11:15 07/04/17 11:48 07/04/17 11:02 Sodium Chloride 1,000 ml @ 75 mls/hr [id number] IV 07/02/17 21:30 08/01/17 21:29 07/04/17 03:17 Trazodone HCl (Desyrel) 100 mg BEDTIME ORAL 07/02/17 22:00 08/01/17 21:59 07/02/17 22:18 Vancomycin HCl (Vanco rx to dose) 1 ea DAILY PRN MISC Per rx protocol 07/03/17 08:45 08/02/17 08:44 Vancomycin HCl 1 gm/Dextrose 275 ml @ 183.708 mls/hr Q24H IVPB 07/04/17 15:00 07/09/17 14:59 Zolpidem Tartrate (Ambien) 5 mg HSPRN PRN ORAL Insomnia 07/02/17 21:00 07/09/17 20:59 BRITTANI LAWRENCE Jul 04, 2017 11:48
--- NOTE | 2017-07-04 12:15 | Diagnostic Imaging Report ---
Indication: Dyspnea Comparison: 07/03/17 at 07:39 A single view chest radiograph was obtained. Findings: Current study performed 22:17 There is extensive consolidation of the lungs bilaterally which appears worse compared to the previous study from a earlier the same day. Endotracheal tube is in good position. Impression: Worsening airspace disease severe in degree.
[2017-07-04] MEDS ORDERED: Vancomycin 1gm in D5W 275ml IVPB SCH (15:00)
[2017-07-04] MEDS ORDERED: DOPamine 400mg/250ml 250 ML IV SCH (16:30)
[2017-07-04] MEDS ORDERED: NS 275ml ONE ×2 (20:28)
[2017-07-04] MEDS ORDERED: Tubing IV Blood Pump IV ONE (20:28)
[2017-07-04] MEDS ORDERED: Tubing IV Secondary IV ONE (20:28)
[2017-07-04] MEDS ORDERED: Sterile Water Irrig 1000ml IRRIG ONE (20:28)
[2017-07-04] MEDS: TraZODone 100mg tab ORAL SCH (21:00)
--- NOTE | 2017-07-04 22:57 | Emergency Room Report ---
Physical Exam Vital Signs Date Time Temp Pulse Resp B/P (MAP) Pulse Ox O2 Delivery O2 Flow Rate FiO2 07/01/17 06:42 97.0 83 36 98/50 97 Nasal Cannula 3.0 07/01/17 10:27 28 Medical Decision Making Diagnostic Impression: Primary Impression: Dyspnea Additional Impressions: MDS (myelodysplastic syndrome) Anemia Acute respiratory failure with hypoxia and hypercapnia Hypoxia Interstitial lung disease ER Course I was asked to pronounce the patient in the ICU. Patien lost pulses but is on the ventilator I examined the patient. There is no pulse. No breath sounds. Patient Last Vital Signs Date Time Temp Pulse Resp B/P (MAP) Pulse Ox O2 Delivery O2 Flow Rate FiO2 07/04/17 20:30 0 0 0/0 0 Mechanical Ventilator 100 07/04/17 19:15 96.1 07/04/17 15:26 15.0 Status: worsened Disposition: Condition: Referrals: NON PHYSICIAN (PCP) FOX TUBBS M.D. Jul 04, 2017 22:57
--- NOTE | 2017-07-04 23:15 | Progress Note ---
DATE: 07/04/2017 CARDIOLOGY PROGRESS NOTE SUBJECTIVE: Condition has deteriorated further. The patient remains in the intensive care unit. Last night, he developed worsening respiratory acidosis and hypoxia requiring intubation and mechanical ventilation. Despite multiple fluid challenges, he remains hypotensive. Pressor support is now ordered by me. OBJECTIVE: VITAL SIGNS: Blood pressure 78/37, heart rate 83, respiratory rate 30. LUNGS: Bilateral breath sounds with rhonchi. Thin secretions from endotracheal tube. HEART: Regular rhythm and rate. Normal S1 and S2 with no murmur. ABDOMEN: Soft. EXTREMITIES: Reveal no edema. LABORATORY AND DIAGNOSTIC SARAH: Chest x-ray reveals bilateral infiltrates. 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 White count 25.6, hemoglobin 8.6. Sodium 131, potassium 3.9, bicarbonate 27, BUN 14, and creatinine 0.8. Pro-natriuretic peptide is 4100. Albumin 1.6. IMPRESSION: 1. Respiratory failure. 2. Shock. 3. Sepsis. 4. Mycobacterium avium complex pneumonia. 5. Acute respiratory distress syndrome. 6. Noncardiogenic pulmonary edema. 7. Severe protein-calorie malnutrition. 8. Paroxysmal atrial fibrillation with rapid ventricular response. 9. Anemia. PLAN: Ventilator support. Antimicrobials per Infectious Disease sales operations consultant. Amiodarone for arrhythmia suppression. Negative fluid balance when blood pressure can tolerate diuresis. Pressors are initiated at this time to maintain adequate perfusion pressures. Condition is critical and prognosis is guarded. Bruce Bello M.D. DR: Jaspal JOB#: [id number] CC:
--- NOTE | 2017-07-04 23:15 | Progress Note ---
DATE: 07/04/2017 CARDIOLOGY PROGRESS NOTE SUBJECTIVE: Condition has deteriorated further. The patient remains in the intensive care unit. Last night, he developed worsening respiratory acidosis and hypoxia requiring intubation and mechanical ventilation. Despite multiple fluid challenges, he remains hypotensive. Pressor support is now ordered by me. OBJECTIVE: VITAL SIGNS: Blood pressure 78/37, heart rate 83, respiratory rate 30. LUNGS: Bilateral breath sounds with rhonchi. Thin secretions from endotracheal tube. HEART: Regular rhythm and rate. Normal S1 and S2 with no murmur. ABDOMEN: Soft. EXTREMITIES: Reveal no edema. LABORATORY AND DIAGNOSTIC SARAH: Chest x-ray reveals bilateral infiltrates. 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 White count 25.6, hemoglobin 8.6. Sodium 131, potassium 3.9, bicarbonate 27, BUN 14, and creatinine 0.8. Pro-natriuretic peptide is 4100. Albumin 1.6. IMPRESSION: 1. Respiratory failure. 2. Shock. 3. Sepsis. 4. Mycobacterium avium complex pneumonia. 5. Acute respiratory distress syndrome. 6. Noncardiogenic pulmonary edema. 7. Severe protein-calorie malnutrition. 8. Paroxysmal atrial fibrillation with rapid ventricular response. 9. Anemia. PLAN: Ventilator support. Antimicrobials per Infectious Disease finance consultant. Amiodarone for arrhythmia suppression. Negative fluid balance when blood pressure can tolerate diuresis. Pressors are initiated at this time to maintain adequate perfusion pressures. Condition is critical and prognosis is guarded. Bruce Bello M.D. DR: Jaspal JOB#: [id number] CC:
--- NOTE | 2017-07-04 23:15 | Progress Note ---
DATE: 07/04/2017 CARDIOLOGY PROGRESS NOTE SUBJECTIVE: Condition has deteriorated further. The patient remains in the intensive care unit. Last night, he developed worsening respiratory acidosis and hypoxia requiring intubation and mechanical ventilation. Despite multiple fluid challenges, he remains hypotensive. Pressor support is now ordered by me. OBJECTIVE: VITAL SIGNS: Blood pressure 78/37, heart rate 83, respiratory rate 30. LUNGS: Bilateral breath sounds with rhonchi. Thin secretions from endotracheal tube. HEART: Regular rhythm and rate. Normal S1 and S2 with no murmur. ABDOMEN: Soft. EXTREMITIES: Reveal no edema. LABORATORY AND DIAGNOSTIC SARAH: Chest x-ray reveals bilateral infiltrates. 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 White count 25.6, hemoglobin 8.6. Sodium 131, potassium 3.9, bicarbonate 27, BUN 14, and creatinine 0.8. Pro-natriuretic peptide is 4100. Albumin 1.6. IMPRESSION: 1. Respiratory failure. 2. Shock. 3. Sepsis. 4. Mycobacterium avium complex pneumonia. 5. Acute respiratory distress syndrome. 6. Noncardiogenic pulmonary edema. 7. Severe protein-calorie malnutrition. 8. Paroxysmal atrial fibrillation with rapid ventricular response. 9. Anemia. PLAN: Ventilator support. Antimicrobials per Infectious Disease consultant dietitian. Amiodarone for arrhythmia suppression. Negative fluid balance when blood pressure can tolerate diuresis. Pressors are initiated at this time to maintain adequate perfusion pressures. Condition is critical and prognosis is guarded. Bruce Bello M.D. DR: Jaspal JOB#: [id number] CC:
--- NOTE | 2017-07-05 12:49 | Discharge Summary ---
Discharge Summary Hospital Course Date of Admission Jul 01, 2017 at 08:45 Date of Discharge Jul 04, 2017 at 20:29 Admitting Diagnosis AFIB, DYSPNEA HPI Fito Soto is a 86 year old male who was admitted on Jul 01, 2017 at 08:45 for Atrial Fibrillation,Dyspnea Hospital Course [id number] Discharge Discharge Disposition Patient Discharge Diagnoses: Carina Paige NP Jul 05, 2017 12:49
--- NOTE | 2017-07-05 12:49 | Discharge Summary ---
Discharge Summary Hospital Course Date of Admission Jul 01, 2017 at 08:45 Date of Discharge Jul 04, 2017 at 20:29 Admitting Diagnosis AFIB, DYSPNEA HPI Fito Soto is a 86 year old male who was admitted on Jul 01, 2017 at 08:45 for Atrial Fibrillation,Dyspnea Hospital Course [id number] Discharge Discharge Disposition Patient Discharge Diagnoses: Carina Paige NP Jul 05, 2017 12:49
--- NOTE | 2017-07-05 12:49 | Discharge Summary ---
Discharge Summary Hospital Course Date of Admission Jul 01, 2017 at 08:45 Date of Discharge Jul 04, 2017 at 20:29 Admitting Diagnosis AFIB, DYSPNEA HPI Fito Soto is a 86 year old male who was admitted on Jul 01, 2017 at 08:45 for Atrial Fibrillation,Dyspnea Hospital Course [id number] Discharge Discharge Disposition Patient Discharge Diagnoses: Carina Paige NP Jul 05, 2017 12:49
--- NOTE | 2017-07-06 03:00 | Discharge Summary 2 SIG ---
DATE OF ADMISSION: 07/01/2017 DATE OF DISCHARGE: 07/04/2017 CONSULTANTS: 1. Prasanna Melton M.D. 2. Bruce Bello M.D. BRIEF SUMMARY: The patient is an unfortunate 86-year-old male, who presented from home due to shortness of breath and weakness. He was recently discharged from [facility] after treatment for respiratory difficulties with pulmonary infiltrates. Sputum for acid fast grew Mycobacterium. He was coughing up mucopurulent sputum. He refused bronchoscopy for definitive diagnosis. He presented to [place] for dyspnea and was started on antibiotic management with azithromycin, rifampin, ethambutol, Zosyn, and vancomycin. He developed SVT and was started on diltiazem and amiodarone. He continued to have worsening O2 and pCO2 and was not improving on BiPAP. He was orally intubated on 07/03/2017. WBC was rising. The patient eventually . FINAL DIAGNOSES: 1. Cardiorespiratory arrest. 2. Progressive Mycobacterium avium complex pneumonia. 3. Acute respiratory failure requiring intubation. 4. Bronchiectasis with acute pneumonia. 5. Anemia of chronic disease. 6. Severe protein-calorie malnutrition. 7. Hypokalemia. 8. Hypertension. 9. Sepsis with rising white blood cells. 10. Rapid atrial fibrillation, supraventricular tachycardia. Delvis Vick M.D. I have been assigned to dictate discharge summary on this account and I was not involved in the patient's management. Carina Paige N.P. DR: RHYS JOB#: [id number] CC: HENRY
--- NOTE | 2017-07-06 03:00 | Discharge Summary 2 SIG ---
DATE OF ADMISSION: 07/01/2017 DATE OF DISCHARGE: 07/04/2017 CONSULTANTS: 1. Prasanna Melton M.D. 2. Bruce Bello M.D. BRIEF SUMMARY: The patient is an unfortunate 86-year-old male, who presented from home due to shortness of breath and weakness. He was recently discharged from [facility] after treatment for respiratory difficulties with pulmonary infiltrates. Sputum for acid fast grew Mycobacterium. He was coughing up mucopurulent sputum. He refused bronchoscopy for definitive diagnosis. He presented to [place] for dyspnea and was started on antibiotic management with azithromycin, rifampin, ethambutol, Zosyn, and vancomycin. He developed SVT and was started on diltiazem and amiodarone. He continued to have worsening O2 and pCO2 and was not improving on BiPAP. He was orally intubated on 07/03/2017. WBC was rising. The patient eventually . FINAL DIAGNOSES: 1. Cardiorespiratory arrest. 2. Progressive Mycobacterium avium complex pneumonia. 3. Acute respiratory failure requiring intubation. 4. Bronchiectasis with acute pneumonia. 5. Anemia of chronic disease. 6. Severe protein-calorie malnutrition. 7. Hypokalemia. 8. Hypertension. 9. Sepsis with rising white blood cells. 10. Rapid atrial fibrillation, supraventricular tachycardia. Delvis Vick M.D. I have been assigned to dictate discharge summary on this account and I was not involved in the patient's management. Carina Paige N.P. DR: RHYS JOB#: [id number] CC: HENRY
--- NOTE | 2017-07-15 10:45 | Cardiology Report ---
APPROVED REPORT EXAM: Two-dimensional and M-mode echocardiogram with Doppler and color Doppler. INDICATION Arrhythmia M-Mode DIMENSIONS IVSd0.9 (0.7-1.1cm)Left Atrium (MM)2.8 (1.6-4.0cm) LVDd3.8 (3.5-5.6cm)Aortic Root2.3 (2.0-3.7cm) PWd0.9 (0.7-1.1cm)Aortic Cusp Exc.1.7 (1.5-2.0cm) LVDs1.8 (2.5-4.0cm) PWs1.3 cm Technically difficult study due to combative patient. Study quality precludes accurate assessment of regional wall motion. Normal left ventricular chamber size, systolic function and wall motion. Left ventricular ejection fraction estimated to be 55 %. No evidence of left ventricular hypertrophy. Possible large posterior pleural effusion. All other cardiac chamber sizes are within normal limits. Mild focal aortic valve sclerosis with adequate cusp excursion. Mildly thickened mitral valve leaflets with normal excursion. Mild mitral annulus and aortic root calcification. Normal pulmonic valve structure. Normal tricuspid valve structure. IVC dilated at 1.6 cm without physiologic collapse, estimated RAP is 15 mmHg. A color flow and spectral Doppler study was performed and revealed: Trace aortic regurgitation. Trace mitral regurgitation. Mitral inflow velocities indicates possible pseudo normalization pattern implying moderately elevated left atrial pressure (Grade II ). Mild to moderate tricuspid regurgitation. Tricuspid systolic velocities suggests peak right ventricular systolic pressure of 51 mmHg, consistent with moderate pulmonary hypertension. Mild pulmonic regurgitation present.
== END 2017-07-04 20:29 | disposition expired | DRG 871 ==
LOC: EDBD 06:51 → EMR 07:35 → 2E 08:45 → EDBEDREQ 09:18 → ENRESERV 09:18 → 2E 10:12 → ICU 07-02 20:25
DX: A41.9 Sepsis, unspecified organism (principal); J15.8 Pneumonia due to other specified bacteria; J96.01 Acute respiratory failure with hypoxia; E43 Unspecified severe protein-calorie malnutrition; I95.9 Hypotension, unspecified; A31.0 Pulmonary mycobacterial infection; E86.0 Dehydration; I47.1 Supraventricular tachycardia; I48.0 Paroxysmal atrial fibrillation; D63.8 Anemia in other chronic diseases classified elsewhere; E87.1 Hypo-osmolality and hyponatremia; Z68.1 Body mass index [BMI] 19.9 or less, adult; J47.9 Bronchiectasis, uncomplicated; E03.9 Hypothyroidism, unspecified; F32.9 Major depressive disorder, single episode, unspecified; E87.6 Hypokalemia; E83.42 Hypomagnesemia; I49.1 Atrial premature depolarization; I49.3 Ventricular premature depolarization; Z66 Do not resuscitate
CPT/HCPCS: 36415; 36600; 70450; 71010; 72040; 74230; 80048; 80053; 81003; 82164; 82248; 82550; 82553; 82803; 83605; 83690; 83735; 83880; 84443; 84484; 85007; 85025; 85610; 85730; 86635; 86738; 86850; 86900; 86901; 86920; 87040; 87070; 87205; 93005; 93306; 94002; 94003; 94640; 94660; 94664; 94760; 99285; J0282; J7620; J8499